=== PATIENT | female | born 1950 | race Caucasian/White ===

== ENCOUNTER 2019-06-13 11:05 | Outpatient (CLI) | payer MEDICARE, OTHER, SELFPAY ==
--- NOTE | 2019-06-13 11:21 | CT_ITS ---
WS: [id number] CT CHEST WITHOUT INTRAVENOUS CONTRAST HISTORY: PULMONARY NODULE RIGHT TECHNIQUE: Contiguous 5 mm axial imaging performed on the thorax. Coronal and sagittal reformats are submitted. All CT scans at [facility] use at least one of these dose optimization techniq ues: automated exposure control; mA and/or kV adjustment per patient size (includes targeted exams wh ere dose is matched to clinical indication); or iterative reconstruction. CONTRAST: None DLP: 526.27 mGycm COMPARISON: 04/16/2018, 10/25/2017 Lungs and central airway: Chronic emphysema. Biapical pleural thickening and scarring with fibrosis i s similar to the study of 10/25/2017. No progression. There is some very mild tethering at the apices. There is mild pleural thickening in the upper lung johnson bilaterally which is also stable. Again no dixie is the pleural-based 8.5 mm nodule in the central RIGHT lung which appears just slightly more con solidated than on the most recent study. Very similar to the study of 10/25/2017. These changes are pr obably related to volume averaging. New area of focal pleural thickening measuring 14 x 3 mm LEFT low er thorax. Mild scarring in the lingula and RIGHT middle lobe. Pleura: No effusions. Heart and pericardium: Mildly enlarged heart chambers. No pericardial effusion. Mediastinum and altaf: No mediastinum or hilar adenopathy. Vessels: Mild atherosclerosis aorta. Normal size pulmonary arteries. Chest wall and lower neck: New soft tissue nodule measuring 9.4 mm in the upper LEFT thorax, just ant erior to the pectoralis muscle. No axillary adenopathy. Upper abdomen: Mild hepatic steatosis. Splenule in the anterior LEFT abdomen. Visualized gallbladder and adrenal glands are negative. Osseous structures: Increase in thoracic kyphosis. No osteoblastic or osteolytic bone disease. CT/CT chest wo con [id number] IMPRESSION: 1. Stable pleural-based nodularity measuring 8.5 mm in the mid lateral RIGHT l radha. Similar to prior studies, no significant change since 10/25/2017. 2. New pleural thickening in the posterior LEFT lung, image 25 of series 3. Macdonald spect this is probably benign finding but will need to be further evaluated. Fo llow-up chest CT in 6-12 months. 3. Chronic emphysema with biapical scarring and fibrosis. 4. New subcutaneous soft tissue nodule measuring 9.4 mm anterior to the LEFT p ectoralis muscle. Recommend follow-up evaluation. This may be a lymph node but has not been present on prior studies.
== END 2019-06-13 11:06 | disposition home or self-care (01) ==
LOC: RADWPI 11:11
PROVIDERS: Family Provider Nurse Practitioner Family; PCP Nurse Practitioner Family; Visit Provider Thoracic Surgery (Cardiothoracic Vascular Surgery)
DX: R91.1 Solitary pulmonary nodule (principal); J43.8 Other emphysema; J84.10 Pulmonary fibrosis, unspecified
CPT/HCPCS: 71250

== ENCOUNTER 2019-10-10 12:50 | Outpatient (CLI) | payer MEDICARE, OTHER, SELFPAY ==
--- NOTE | 2019-10-10 13:06 | MM_ITS ---
WS: [id number] DIAGNOSTIC BILATERAL DIGITAL MAMMOGRAM WITH CAD LEFT breast ultrasound, limited HISTORY: LT BREAST LUMP 12 O'CLOCK COMPARISON: 12/27/2018, 12/06/2018 and 11/20/2017 TECHNIQUE: Bilateral craniocaudad, mediolateral oblique, and mediolateral views are submitted. Spot c ompression LEFT MLO Computer aided detection utilized. Breast composition: There are scattered areas of fibroglandular density. High density mass measures 14 mm in the superior posterior LEFT breast. There are adjacent benign-hany earing lymph nodes. Several lymph nodes are noted in the superior portion of the breast on the prior exam. There are adjacent superimposed lymph nodes in the axilla. This may be an abnormal lymph node a s there was a lucent center on the prior study and there are adjacent lymph nodes. Ultrasound to foll ow. LEFT breast ultrasound, limited. Ill-defined hypoechoic mass at 12:00, 6 cm from the nipple. Central increased vascularity. This mass measures 2.4 x 1.1 x 2.3 cm. This corresponds to the palpable abnormality. Normal lymph nodes in the axilla. MM/[place] [id number] IMPRESSION: BI-RADS: 4-Suspicious Finding-Biopsy Should Be Considered FOLLOW UP: Biopsy Recommended Ultrasound-guided biopsy recommended palpable mass LEFT breast at 12:00.
== END 2019-10-10 12:51 | disposition home or self-care (01) ==
LOC: RADSHAW 12:52
PROVIDERS: PCP Nurse Practitioner Family; Visit Provider Nurse Practitioner Family
DX: N63.25 Unspecified lump in the left breast, overlapping quadrants (principal)
CPT/HCPCS: 76642; 77066

== ENCOUNTER 2019-10-18 06:53 | Outpatient (CLI) | payer MEDICARE, OTHER, SELFPAY ==
--- NOTE | 2019-10-18 | US_ITS ---
WS: [id number] ULTRASOUND-GUIDED LEFT BREAST BIOPSY CLINICAL INFORMATION: LEFT BREAST MASS COMPARISON: None. FINDINGS: The procedure including risks, benefits, and complications were discussed with the patient who agreed to proceed. Using sterile technique patient was prepped and draped in the usual sterile fashion. Aft er 1% lidocaine utilizing real-time ultrasound guidance 5 14-gauge cores were obtained of the left br east lesion at the 12 o'clock position. Subsequently a titanium clip was placed in the biopsy cavity. No immediate complications. PATHOLOGY DEMONSTRATES Breast, left, mass, ultrasound-guided biopsy: -Mucinous carcinoma (colloid carcinoma). PATHOLOGY COMMENT The biopsy consists of small uniform cluster of cells floating in lakes of extracellular mucin. Addit ional ancillary studies have been performed and will be added as an addendum. US/[place] [id number] IMPRESSION: 1. Uncomplicated ultrasound-guided left breast biopsy. 2. The pathology demonstrates mucinous carcinoma (colloid carcinoma) BI-RADS: 6-Known Biopsy-Proven Malignancy FOLLOW UP: Surgical Biopsy Recommended RECOMMEND BREAST SURGERY CONSULTATION
== END 2019-10-18 06:54 | disposition home or self-care (01) ==
PROVIDERS: PCP Nurse Practitioner Family; Visit Provider Nurse Practitioner Family
DX: C50.812 Malignant neoplasm of overlapping sites of left female breast (principal)
CPT/HCPCS: 19083; 88305

== ENCOUNTER → 2019-10-30 14:18 | Outpatient (BNVA) | payer MEDICARE, OTHER, SELFPAY | PROVIDERS: PCP Nurse Practitioner Family; Visit Provider Surgery | DX: Z20.828 Contact with and (suspected) exposure to other viral communicable diseases (principal) | CPT/HCPCS: 87635 ==

== ENCOUNTER 2019-11-07 07:26 | Day surgery (SDC) | payer MEDICARE, OTHER, SELFPAY ==
[2019-11-06 12:36] VITALS: BMI 22.6
[2019-11-07 07:44] VITALS: BP 159/87; PULSE 73; RESP 18; TEMP 36.3; O2SAT 99
[2019-11-07] MEDS: sodium chloride 0.9% 1,000 ML 30 ML IV (07:45)
--- NOTE | 2019-11-07 07:49 | NM_ITS ---
WS: [id number] NUCLEAR MEDICINE SENTINEL LYMPH NODE IMAGING HISTORY: BREAST LUMPECTOMY, LEFT COMPARISON: 10/10/2019 TECHNIQUE: The patient was injected with 1.1 mCi of Technetium 99 ultra filtered sulfur colloid. Inje ction is intradermal in a periareolar location. Four aliquots are used. Uncomplicated injection of radionuclide LEFT breast. NM/NM sentinel node inject [id number] IMPRESSION: Uncomplicated LEFT breast sentinel node injection.
--- NOTE | 2019-11-07 08:32 | ANES.PREANE2 ---
Pre-Anesthetic Assessment Pre-Anesthetic Assessment: Height/Weight: Height 1.57 m Weight 56.245 kg Temp Pulse Resp BP Pulse Ox 97.3 F L 73 18 159/87 99 11/07/19 07:44 11/07/19 07:44 11/07/19 07:44 11/07/19 07:44 11/07/19 07:44 Preop Diagnosis: breast lump Proposed Procedure: Operation Date: 11/07/19 10:05 Proposed Procedures p Sentinal Lymph Node Biopsy(Left) - Chico Corrales MD s Breast Biopsy(Left) - Chico Corrales MD Familial anesthetic complications: none Was Beta Zaid taken within 24 hours: N/A Last intake: Intake Last Liquid Date 11/07/19 Last Liquid Time 00:00 Last Solid Date 11/07/19 Last Solid Time 00:00 Social: Comment: former smoker Exam: Pre-Anes Outpt Exam: alert, oriented x 3, clear to auscultation bilaterally and regular rate & rhythm Airway: Cervical ROM: WNL MP: 4 Dentition: Full Pulmonary: Pulmonary: COPD (mild - doesn't even use inhaler) Musc/skel: Musc/skel: Lower Back Pain Comments: back surgery Anesthetic Plan: ASA status: 1 Anesthesia: MAC Risk of > 500 ml blood loss (7ml/kg in children): No PFSH Anesthesia PFSH: Social History Smoking and tobacco status: former smoker Alcohol intake: current Alcohol intake frequency: holidays/special occasions only Household members: spouse Marital status: Current occupational status: retired Data Anesthesia Cardiac Studies: No Data to Display
--- NOTE | 2019-11-07 08:42 | W.PM.OPSUD ---
Surgery/Procedure H&P Update DATE OF PROCEDURE: November 07, 2019 DATE H&P PERFORMED: 11/28/19 H&P UPDATE INFORMATION: No changes to prior documentation PREOP DIAGNOSIS: breast lump PLANNED PROCEDURE: Operation Date: 11/07/19 10:05 Proposed Procedures p Sentinal Lymph Node Biopsy(Left) - Chico Corrales MD s Breast Biopsy(Left) - Chico Corrales MD
--- NOTE | 2019-11-07 12:21 | P.OP_ITS ---
Operative Report Date of procedure: November 07, 2019 Pre-op Diagnosis: Left breast cancer. Post-op diagnosis: same Procedure Done: 1. Left axillary sentinel lymph node biopsy. 2. Left breast lumpectomy. Specimens removed/disposition: 1. Left axillary sentinel lymph nodes. 2. Left breast lumpectomy specimen. Long suture anteriorly, short suture laterally. Surgeon: Chico Corrales Anesthesia: MAC Estimated blood loss (mL): 5 Complications: None. Condition: stable Disposition: same day Procedure: The patient was brought to the operating room and was placed in a supine position on the operating room table. The patient had undergone radioactive tracer injection in radiology preoperatively. A monitored anesthetic was induced. The left axilla and breast were prepped and draped in a sterile fashion. A combination of 1% lidocaine and 0.5% bupivacaine with 1- 200,000 parts epinephrine was used for local anesthesia throughout the procedures. Attention was first directed to the left axilla. The gamma probe was used to find the hot spot in the axilla. A curvilinear incision was carried out over the hot spot of the axilla at the inferior and somewhat anterior aspect. Cautery and blunt dissection were used to traverse the subcutaneous tissue and the axilla was entered. Using a combination of inspection and the gamma probe, the hot lymph node was found and was completely removed using blunt dissection and cautery. The lymph node registered counts of 130 on the field. There were 1 or 2 other smaller lymph nodes in the tissue just adjacent to the primary node, and this tissue was excised and sent, as well. Further inspection of the axilla with the gamma probe revealed all counts less than 5. The wound was irrigated with saline. A suture of 3-0 Vicryl was used to bring the deeper tissue together and the skin was approximated using a running subcuticular suture of 4-0 Vicryl. Attention was then directed to the left breast where the patient had a palpable mass in the very upper portion at the 1130 axis. A transverse incision was made and skin flaps were created both superiorly and inferiorly, as there was not a lot of breast tissue in this region. Dissection was then carried out around the mass all the way posteriorly to the pectoralis musculature. The mass was removed from the top of the muscle and in the process was marked with a long suture anteriorly and a short suture laterally for pathologic orientation. The mass seem to be completely within the excised tissue by palpation and no other abnormalities were seen in the surrounding area. The wound was irrigated with saline. The skin was reapproximated using a running subcuticular suture of 4-0 Vicryl. Benzoin and Steri-Strips were placed over the wounds and sterile bandages followed. The patient was taken to the recovery area in stable condition postoperatively.
[2019-11-07 12:34] VITALS: BP 106/62; PULSE 72; RESP 18; TEMP 36.3; O2SAT 100
--- NOTE | 2019-11-07 12:47 | ANE.PACU2 ---
Inpatient post-anesthesia follow up: Airway intact: Yes Vital signs: Temperature 97.3 F Pulse Rate 72 Respiratory Rate 18 Blood Pressure 106/62 Pulse Oximetry 100 Oxygen Delivery Me thod Room Air Oxygen Flow Rate Fraction of Inspir ed Oxygen Hydration adequate: Yes Nausea and vomiting: No Pain level: 1 Mental status: Baseline
[2019-11-07 12:52] VITALS: BP 116/87; PULSE 65; RESP 18; O2SAT 96
== END 2019-11-07 13:13 | disposition home or self-care (01) ==
PROVIDERS: PCP Nurse Practitioner Family; Visit Provider Surgery
PROC: (CPT 19301; principal; 2019-11-07 10:05)
PROC: (CPT 19301; 2019-11-07 10:05)
DX: C50.912 Malignant neoplasm of unspecified site of left female breast (principal); Z87.891 Personal history of nicotine dependence; J43.9 Emphysema, unspecified
CPT/HCPCS: 19301; 38525; 12345; 38792; 88305; A9541; J0690; J2704; J3010; J3490; J7030

== ENCOUNTER 2019-11-28 05:54 | Day surgery (SDC) | payer MEDICARE, OTHER, SELFPAY ==
[2019-11-27 08:19] VITALS: BMI 119.5
[2019-11-28 06:20] VITALS: BP 148/84; PULSE 73; RESP 18; TEMP 36.4; O2SAT 98
[2019-11-28] MEDS: sodium chloride 0.9% 1,000 ML 30 ML IV (06:35)
--- NOTE | 2019-11-28 07:23 | W.PM.OPSUD ---
Surgery/Procedure H&P Update DATE OF PROCEDURE: November 28, 2019 DATE H&P PERFORMED: 11/28/19 H&P UPDATE INFORMATION: No changes to prior documentation PREOP DIAGNOSIS: Left breast cancer. PLANNED PROCEDURE: Operation Date: 11/28/19 07:30 Proposed Procedures p Evacuation of L Breast Hematoma(Left) - Chico Corrales MD
--- NOTE | 2019-11-28 07:32 | ANES.PREANE2 ---
Pre-Anesthetic Assessment Pre-Anesthetic Assessment: Height/Weight: Height 1.55 m Weight 56.245 kg Temp Pulse Resp BP Pulse Ox 97.5 F L 73 18 148/84 98 11/28/19 06:20 11/28/19 06:20 11/28/19 06:20 11/28/19 06:20 11/28/19 06:20 Preop Diagnosis: Left breast cancer. Proposed Procedure: Operation Date: 11/28/19 07:30 Proposed Procedures p Evacuation of L Breast Hematoma(Left) - Chico Corrales MD Was Beta Zaid taken within 24 hours: N/A Last intake: Intake Last Liquid Date 11/27/19 Last Liquid Time 21:00 Last Solid Date 11/27/19 Last Solid Time 21:00 Social: Social History: No alcohol and No tobacco Exam: Pre-Anes Outpt Exam: alert, oriented x 3, clear to auscultation bilaterally and regular rate & rhythm Airway: Submandibular: WNL Cervical ROM: WNL MP: 2 Dentition: Full History/ROS: No significant history except as noted and No significant complaints Pulmonary: Pulmonary: COPD CV/HEM: CV/HEM: None reported : : None reported Hepatic: Hepatic: None reported GI: GI: None reported Metabolic: Metabolic: None reported Musc/skel: Musc/skel: None reported Neuropsych: Neuropsych: Anxiety and Depression Anesthetic Plan: ASA status: 2 Anesthesia: MAC Risk of > 500 ml blood loss (7ml/kg in children): No Meds/Allergies Current Medications: Current Medications Generic Name Dose Route Start Last Admin Trade Name Freq PRN Reason Stop Dose Admin Sodium Chloride 1,000 mls @ 30 ml s/hr 11/28/19 06:00 11/28/19 06:35 Sodium Chloride 0.9% IV 11/29/19 05:59 30 mls/hr .Q24H JAZMINE Administration PFSH Anesthesia PFSH: Social History Smoking and tobacco status: former smoker Alcohol intake: current Alcohol intake frequency: holidays/special occasions only Household members: spouse Marital status: Current occupational status: retired Data Anesthesia Cardiac Studies: No Data to Display
--- NOTE | 2019-11-28 07:48 | PM.OP ---
Operative Report Date of procedure: November 28, 2019 Pre-op Diagnosis: Left breast cancer, postoperative left breast hematoma. Post-op diagnosis: same Procedure Done: Evacuation of left breast hematoma. Pathology: none sent Surgeon: Chico Corrales Anesthesia: MAC Estimated blood loss (mL): 1 Complications: None. Condition: stable Disposition: same day Procedure: The patient was brought to the operating room and was placed in a supine position on the operating room table. A monitored anesthetic was induced. The left breast was prepped and draped in a sterile fashion. A combination of 1% lidocaine with 1 to 100,000 parts epinephrine and 0.5% bupivacaine was used for local anesthesia throughout the procedure. The lateral aspect of the patient's previous biopsy incision was reopened using a scalpel. Approximately 150 mL of old clot and liquefied hematoma were then evacuated from the biopsy cavity with suction. The cavity was then irrigated several times with saline. The small skin incision was reapproximated using inverted interrupted sutures of 4-0 Vicryl. Benzoin and a Steri-Strip were placed over the incision and a sterile compression bandage followed. The patient was taken to the outpatient recovery area in stable condition postoperatively.
[2019-11-28 07:52] VITALS: BP 112/68; PULSE 73; RESP 18; TEMP 36.7; O2SAT 96
[2019-11-28 08:23] VITALS: BP 140/68; PULSE 70; RESP 18; TEMP 36.7; O2SAT 98
--- NOTE | 2019-11-28 09:00 | ANE.PACU2 ---
Inpatient post-anesthesia follow up: Airway intact: Yes Vital signs: Temperature 98.0 F Pulse Rate 70 Respiratory Rate 18 Blood Pressure 140/68 Pulse Oximetry 98 Oxygen Delivery Me thod Room Air Oxygen Flow Rate Fraction of Inspir ed Oxygen Hydration adequate: Yes Nausea and vomiting: No Pain level: 1 Mental status: Baseline
== END 2019-11-28 09:00 | disposition home or self-care (01) ==
PROVIDERS: PCP Nurse Practitioner Family; Visit Provider Surgery
PROC: (CPT 10140; principal; 2019-11-28 07:30)
DX: N64.89 Other specified disorders of breast (principal); Z87.891 Personal history of nicotine dependence; C50.912 Malignant neoplasm of unspecified site of left female breast; J43.9 Emphysema, unspecified; K21.9 Gastro-esophageal reflux disease without esophagitis; F32.9 Major depressive disorder, single episode, unspecified
CPT/HCPCS: 10140; 12345; 96365; J0690; J2250; J2704; J3490; J7030

== ENCOUNTER 2019-12-03 10:35 | Outpatient (CLI) | payer MEDICARE, OTHER, SELFPAY ==
--- NOTE | 2019-12-03 15:26 | ONC CON_ITS ---
Dr. Luna New Patient Note Patient: Vania Vallejo Unit #: [id number]: 1950 Dicatated By: Sidney Luna M.D.Date of Visit: Dec 03, 2019 Onc MED New Patient/Consult Referring Physician: Yariel Bynum Chief Complaint: Breast cancer. 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 This patient is known to be BRCA1 positive, discovered approximately 10 years ago when her daughter was diagnosed with breast cancer and was found to harbor a BRCA1 mutation. She has been undergoing surveillance mammography. Her routine screening mammogram from 12/06/2018 was BI-RADS 0. She had additional mammographic views and ultrasound of the left breast on 12/27/2018. Mammogram findings included a round nodule in the medial left breast at the middle depth measuring 5 mm. Ultrasound showed a slightly lobulated nodule at the 10 o'clock position 1 cm from the nipple measuring 6 x 4 mm. The appearance was benign, and she was recommended to continue yearly follow-up. In September 2019 she had presented to [facility] with a lump in the superior aspect of the left breast. Bilateral diagnostic mammogram and left breast ultrasound at that time was BI-RADS 4, suspicious. Mammogram findings included a high density mass in the superior posterior left breast measuring 14 mm with several adjacent benign-appearing lymph nodes. Also noted were adjacent superimposed lymph nodes in the axilla, at least 1 of which was felt to be possibly abnormal. Ultrasound showed an ill-defined hypoechoic mass at 12 o'clock position 6 cm from the nipple. It measured 2.4 x 1.1 x 2.3 cm. There were normal appearing lymph nodes in the axilla. Ultrasound directed core needle biopsy of the left breast mass on 10/18/2019 showed mucinous carcinoma (colloid carcinoma). The breast prognostic profile showed ER positive at 100% and GA positive at 98%. The tumor was negative for overexpression of HER-2/lazarus, 0+ by IHC and amplification ratio by FISH of 0.8 with 1.8 HER-2 copies/cell. The Ki-67 was favorable at 5%. She was referred to Dr. Corrales. On 11/07/2019 she underwent left breast lumpectomy with axillary sentinel lymph node biopsy. Pathology showed grade 1 mucinous carcinoma (colloid carcinoma) measuring 2.5 cm in greatest dimension. There was mucin identified at the inferior margin, but the margins were free of mucinous carcinoma. There was no involvement in 6 lymph nodes. Pathologic staging was pT2, pN0. She is seen for further management of the breast cancer. She has been feeling pretty good generally. She says her energy is pretty good. She has normal activity. ECOG score is 0. Her appetite is good and her weight is stable. She has not had fever. She has just occasional hot flashes. She has a little bit of sinus drainage. She does not complain of shortness of breath, cough, or chest pain. She has no GI or complaints. She has no significant joint or bone pain. She has just occasional headache. She has no focal neurologic symptoms. Past Medical History: Her medical history includes chronic obstructive pulmonary disease, degenerative disease of the spine, insomnia, osteopenia, and vitamin D deficiency. Past Surgical History: She underwent undirected core needle biopsy of left breast mass on 10/18/2019. She underwent left breast lumpectomy with axillary sentinel lymph node biopsy on 11/07/2019, and she underwent evacuation of left breast hematoma on 11/28/2019. Her other surgical/procedural history includes lumbar laminectomy for ruptured disc in 2017 and hysterectomy/bilateral salpingo-oophorectomy for benign ovarian cyst in 1994. Medications: Adult Aspirin EC Low Strength 1 Tablet (of 81 mg) Tablet, enteric coated Oral daily, Apple Cider Vinegar 1 Capsule Oral daily, Tumersaid 1 Tablet Oral daily Allergies: Iodinated Contrast Dye Social History: Ms. Vallejo is . She has history of smoking 1/2 pack of cigarettes daily for 20 years. She quit smoking in 2008. She has had only rare alcohol use. Family History: Father at age 83, cause unknown to the patient. Mother of stroke at age 79. 1 brother and 3 sisters are in good health. A son in a motor vehicle accident at age 19. Her only other child, a daughter, was treated for breast cancer approximately 10 years ago. She was found to have a BCRA1 mutation. A niece was also treated for breast cancer, but she was BRCA negative. Review Of Symptoms: Constitutional - She feels good generally. Her energy is good. She has normal activity without restrictions. Her appetite is good and weight is stable. No fever, night sweats, or hot flashes. ECOG score is 0, Eyes - No change in vision, ENMT - She has seasonal allergies. No mouth sores. No sore throat or difficulty swallowing, Hematologic/Lymphatic - She bruises easily, Respiratory - She gets short of breath with activity. No cough. No pleuritic pain or hemoptysis, Cardiovascular - No angina pain. No palpitations, Gastrointestinal - No nausea or vomiting. No heartburn or acid reflux. No diarrhea or constipation. No blood in the stool or black stools, Genitourinary (F) - No dysuria or hematuria. No urinary frequency. No urgency or incontinence, Musculoskeletal - No joint or bone pain, Integumentary - No skin complications, Neurologic - She rarely has a headache. No dizziness. No numbness or tingling. No other focal neurologic symptoms, Psychiatric - No anxiety or depression. She has some difficulty sleeping. Vital Signs: Performed on Dec 03, 2019 10:52: 0, 23.39, 1.54 sq.m, 61 in, 97 %, 77 /min, 18 /min, 174/76 mm(hg) (HIGH), 98.6 F, and 123.8 lbs (HIGH). Physical Examination: Constitutional - She appears to be in good general health, Eyes - Sclerae nonicteric. Conjunctivae clear, ENMT - No lesions noted in the oral cavity, Neck - No mass or thyromegaly, Hematologic/Lymphatic - No cervical or clavicular adenopathy, Respiratory - Lungs are clear with good air movement bilaterally, Cardiovascular - Heart rhythm is regular. There is no murmur, gallop, or rub noted, Breasts - The right breast shows no mass. There is a significant area of induration at the lumpectomy site in the superior right breast/chest wall. He has the left breast otherwise shows no mass. Total time There is no axillary adenopathy noted, Abdomen - Soft and non-tender. Liver and spleen are not enlarged. There is no abdominal mass or ascites noted and there is no inguinal adenopathy, Back/Spine - No spine or CVA tenderness noted, Extremities - No edema. Pedal pulses are palpable bilaterally, Integumentary - No rashes. No suspicious skin lesions noted, Neurologic - No focal neurologic deficits noted. Impression: 1. Patient with grade 1 mucinous carcinoma (colloid carcinoma of the left breast, stage IB (T2, pN0, M0), ER/GA positive and HER-2/lazarus negative. 2. She underwent ultrasound directed core needle biopsy of the left breast on 10/18/2019 followed by left breast lumpectomy and axillary sentinel lymph node biopsy on 11/07/2019. 3. She underwent evacuation of left breast hematoma on 11/28/2019. 4. She had previously been determined to harbor a BRCA1 mutation. Her other medical illnesses include: 5. COPD. 6. Degenerative disease of the spine. 7. Osteopenia. 8. Vitamin D deficiency. Plan: The pathology findings were reviewed with the patient and her daughter, and we discussed the clinical implications. She has a very low-grade form of breast cancer which would not typically be expected in association with a BCRA mutation. Under normal circumstances, at this point I would just recommend that she undergo radiation followed by adjuvant hormonal therapy. In the presence of the known BRCA mutation, as a precaution, I will also request an Oncotype DX assay, though it is my expectation that she will not require adjuvant chemotherapy. The other consideration we discussed was the possibility of bilateral mastectomy, which normally would not be indicated with a colloid carcinoma. In the presence of a BRCA mutation, I think that option should be made available to her, as she will still have increased risk for further breast cancer in the future. At least for now I will request the Oncotype DX. She will discuss this further with her daughter and make a decision as to whether she wants to proceed with radiation or give further consideration to bilateral mastectomy with or without reconstruction. In the meantime, she will be given flu shot and Pneumovax today. Signed By: Sidney Luna M.D. <<Signature on File>>
== END 2019-12-03 10:36 | disposition home or self-care (01) ==
LOC: ONCMED 10:40
PROVIDERS: PCP Nurse Practitioner Family; Visit Provider Internal Medicine Medical Oncology
DX: C50.812 Malignant neoplasm of overlapping sites of left female breast (principal); Z23 Encounter for immunization; J44.9 Chronic obstructive pulmonary disease, unspecified; M47.9 Spondylosis, unspecified; M85.80 Other specified disorders of bone density and structure, unspecified site; E55.9 Vitamin D deficiency, unspecified; Z17.0 Estrogen receptor positive status [ER+]; Z80.3 Family history of malignant neoplasm of breast; Z87.891 Personal history of nicotine dependence
CPT/HCPCS: 99205

== ENCOUNTER 2020-02-04 05:34 | Outpatient (RCR) | payer MEDICARE, OTHER, SELFPAY ==
--- NOTE | 2020-01-08 10:40 | N.ONRAD NP_ITS ---
Radiation Oncology Consultation Patient: Vania Vallejo MR#: [id number] : 1950 Attending Physician: Dinesh Davies M.D. Date of Service: 01/08/2020 Vania Vallejo was seen in consultation this morning for evaluation regarding potential breast radiotherapy for the management of her early stage breast cancer. She presented to her primary care physician with a palpable left breast mass in September of this year. A diagnostic mammogram completed on October 10, 2019 demonstrated a 1.4 cm mass in the superior aspect of the left breast. Ultrasonography confirmed within the 12 o'clock position, 6 cm from the nipple, a 2.4 cm x 1.1 cm x 2.3 cm ill-defined, hypoechoic mass corresponding to the mammographic abnormality in the left breast. An ultrasound-guided biopsy obtained on October 18, 2019 diagnosed a mucinous carcinoma (colloid). Immunohistochemical stains were positive for estrogen receptor (100%) and progesterone receptor (98%) while negative for HER-2. The KI-67 was 5%. A left partial mastectomy with sentinel lymph node biopsy was performed by Leandro Corrales M.D. on November 07, 2019. A 2.5 cm grade 1 mucinous carcinoma was present with lymphovascular invasion present. Pella lymph node biopsy harvested six lymph nodes that were negative for malignancy. The OncotypeDX Recurrence Score of the tumor was 9. The patient presents for discussion regarding adjuvant breast radiotherapy. The patient's past medical history is significant for anemia, anxiety, depression, COPD, GERD, insomnia, migraine headaches, and vitamin D deficiency, Her past surgical history includes breast biopsy (left), laminectomy (lumbar), lipoma excision (abdominal wall), partial mastectomy with sentinel lymph node biopsy, and total abdominal hysterectomy with bilateral salpingo-oophorectomy. Her obstetrical history is . Menses began between ages 12 and 13 years old. I have reviewed the patient's medication profile which is available in the electronic medical record. She described a contrast dye allergy (iodine). The patient's family history was remarkable for breast cancer (daughter). The patient was accompanied to this consultation by her daughter. She reported a previous tobacco habit of 1/2 pack/day for 20 years (quit in 2008) and rare alcohol intake (1 -2 drinks every 2-3 months). On review of systems, she did not report any constitutional complaints including fevers of unknown origin or unintentional weight loss. There were no head neck complaints including diplopia, tinnitus, epistaxis, or dysphagia. She did not report breast complaints such as masses or nipple discharge nor any enlarged lymph nodes of the neck, armpit, or groin. She denied any cardiopulmonary symptoms such as angina, cough, or palpitations. On gastrointestinal review, she reported dyspepsia but no nausea or diarrhea. There were no genitourinary complaints such as dysuria or hematuria. She did not report any musculoskeletal complaints including bone pain or muscle weakness. There were no neurological symptoms such as headaches, paresthesias, or seizures. On physical examination, the patient has an ECOG performance status of 0. Her weight was 124 lbs. The temperature was 97.8???F. The blood pressure was 139/85 mmHg. The pulse was 70 bpm and the respiratory rate of was 18. The head was normocephalic and atraumatic. Ophthalmoscopy identified bilateral red reflexes with sharp fundi visualized. Otoscopy revealed cerumen within the external auditory canals that obstructed the tympanic membranes. Rhinoscopy exhibited non-inflamed turbinates. The oral cavity had moist mucous membranes and no oropharyngeal exudate was present. There was no cervical adenopathy or thyromegaly. No dominant breast masses were palpated. A scar was present in the upper-inner quadrant of the left breast. There was no palpable axillary adenopathy. Normal fremitus was noted with resonance to percussion elicited. Bronchovesicular breath sounds were auscultated in the posterior lung johnson. Cardiac sounds were regular in rate and rhythm. No auscultated gallops or murmurs present. No JVD noted. The abdomen had active bowel sounds. No tenderness to palpation. No evidence of organomegaly. No muscle weakness upon testing. No tenderness to deep palpation along the axial skeleton. Cranial nerves II through XII were intact. No sensory deficits. Normal reflexes noted. Gait was normal. In summary, the patient presented to her primary care physician with a palpable left breast mass in September of this year. A diagnostic mammogram completed on October 10, 2019 demonstrated a 1.4 cm mass in the superior aspect of the left breast. Ultrasonography confirmed within the 12 o'clock position, 6 cm from the nipple, a 2.4 cm x 1.1 cm x 2.3 cm ill-defined, hypoechoic mass corresponding to the mammographic abnormality in the left breast. An ultrasound-guided biopsy obtained on October 18, 2019 diagnosed a mucinous carcinoma (colloid). Immunohistochemical stains were positive for estrogen receptor (100%) and progesterone receptor (98%) while negative for HER-2. The KI-67 was 5%. A left partial mastectomy with sentinel lymph node biopsy was performed by Leandro Corrales M.D. on November 07, 2019. A 2.5 cm grade 1 mucinous carcinoma was present with lymphovascular invasion present. Pella lymph node biopsy harvested six lymph nodes that were negative for malignancy. The OncotypeDX Recurrence Score of the tumor was 9. The patient presents for discussion regarding adjuvant breast radiotherapy. I reviewed with the patient her AJCC pathological stage IB (T2N0) breast cancer. I also discussed the classic study by the NSABP comparing mastectomy, lumpectomy, and lumpectomy with radiotherapy and the Early Breast Cancer Trialist Collaborative Group meta-analysis. She is aware that the addition of radiotherapy to lumpectomy provides improvement in local control and overall survival. I anticipate a 3 week course of hypofractionated radiotherapy which will be implemented following CT radiotherapy treatment planning. Toxicities of breast radiotherapy was also addressed. The patient has verbalized understanding would like to proceed as recommended. Signed by: Dr. Dinesh Davies 01/08/2020 10:38:51 AM
--- NOTE | 2020-01-09 | CT_ITS ---
Radiation Therapy Planning CT images; total exam DLP: 460.67 mGy-cm MTDD
--- NOTE | 2020-01-13 11:33 | ONCRAD TMN_ITS ---
Radiation Oncology Weekly Treatment Management Patient: Vania Vallejo MR#: [id number] : 1950 Attending Physician: Dinesh Davies M.D. Date of Service: 01/13/2020 Referring Physician(s): Aria Mohr M.D. 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 Immunohistochemical staining were positive for estrogen receptor and progesterone receptor while negative for HER2. She has received 2.7 Gy of a prescribed 40 Gy delivered with a 3D conformal radiotherapy plan utilizing a prone set-up with opposed tangential portal johnson and electronic compensation. Upon review of systems, she denied any breast complaints to radiotherapy. On physical examination, the patient weighed 121 lbs. Her temperature was 98.3 ???F with a blood pressure of 141/76 mmHg. Her pulse was 64 bpm and her respiratory rate was 18. There was no erythema within the treatment johnson of the right breast. Continue hypofractionated breast radiotherapy as prescribed. Signed by: Dr. Dinesh Davies 01/13/2020 11:31:41 AM
--- NOTE | 2020-01-20 11:21 | ONCRAD TMN_ITS ---
Radiation Oncology Weekly Treatment Management Patient: Vania Vallejo MR#: [id number] : 1950 Attending Physician: Dinesh Davies M.D. Date of Service: 01/20/2020 Referring Physician: Aria Batuista M.D. 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 Immunohistochemical staining were positive for estrogen receptor and progesterone receptor while negative for HER2. She has received 16 Gy of a prescribed 40 Gy delivered with a 3D conformal radiotherapy plan utilizing a prone set-up with opposed tangential portal johnson and electronic compensation. Upon review of systems, she denied any breast complaints to radiotherapy. On physical examination, the patient weighed 122 lbs. Her temperature was 98.6 ???F with a blood pressure of 130/77 mmHg. Her pulse was 70 bpm and her respiratory rate was 18. There was no erythema within the treatment johnson of the left breast. Continue hypofractionated breast radiotherapy as planned. Signed by: Dr. Dinesh Davies 01/20/2020 11:20:02 AM
--- NOTE | 2020-01-27 13:19 | ONCRAD TMN_ITS ---
Radiation Oncology Weekly Treatment Management Patient: Vania Vallejo MR#: [id number] : 1950 Attending Physician: Dinesh Davies M.D. Date of Service: 01/27/2020 Referring Physician: Aria Mohr M.D. 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 Immunohistochemical staining were positive for estrogen receptor and progesterone receptor while negative for HER2. She has received 26.7 Gy of a prescribed 40 Gy delivered with a 3D conformal radiotherapy plan utilizing a prone set-up with opposed tangential portal johnson and electronic compensation. Upon review of systems, she denied any breast complaints to radiotherapy. On physical examination, the patient weighed 121 lbs. Her temperature was 98.0 ???F with a blood pressure of 154/74 mmHg. Her pulse was 80 bpm and her respiratory rate was 18. There was no erythema within the treatment johnson of the left breast. Continue hypofractionated breast radiotherapy as prescribed. Signed by: Dr. Dinesh Davies 01/27/2020 1:19:04 PM
--- NOTE | 2020-02-03 11:44 | ONCRAD TMN_ITS ---
Radiation Oncology Weekly Treatment Management Patient: Vania Vallejo MR#: [id number] : 1950 Attending Physician: Dinesh Davies M.D. Date of Service: 02/03/2020 Referring Physician: Dr. 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 Immunohistochemical staining were positive for estrogen receptor and progesterone receptor while negative for HER2. She has received 37.3 Gy of a prescribed 40 Gy delivered with a 3D conformal radiotherapy plan utilizing a prone set-up with opposed tangential portal johnson and electronic compensation. Upon review of systems, she reported itching of the breast. On physical examination, the patient weighed 123 lbs. Her temperature was 97.8 ???F with a blood pressure of 148/76 mmHg. Her pulse was 68 bpm and her respiratory rate was 16. There were erythematous papules in the medial portion of the left breast. Continue hypofractionated left breast radiotherapy as planned. I will recommend diphenhydramine lotion for itching. Signed by: Dr. Dinesh Davies 02/03/2020 11:43:10 AM
== END 2020-02-06 23:59 | disposition home or self-care (01) ==
LOC: ONCMED 05:34
PROVIDERS: PCP Nurse Practitioner Family; Visit Provider Radiology Radiation Oncology
DX: Z51.0 Encounter for antineoplastic radiation therapy (principal); C50.212 Malignant neoplasm of upper-inner quadrant of left female breast; L53.8 Other specified erythematous conditions; D64.9 Anemia, unspecified; F41.8 Other specified anxiety disorders; J44.9 Chronic obstructive pulmonary disease, unspecified; K21.9 Gastro-esophageal reflux disease without esophagitis; G47.00 Insomnia, unspecified; G43.909 Migraine, unspecified, not intractable, without status migrainosus; E55.9 Vitamin D deficiency, unspecified; Z90.12 Acquired absence of left breast and nipple; Z90.710 Acquired absence of both cervix and uterus; Z87.891 Personal history of nicotine dependence; Z80.3 Family history of malignant neoplasm of breast; Z17.0 Estrogen receptor positive status [ER+]
CPT/HCPCS: 77280; 77295; 77300; 77332; 77334; 77336; 77387; 77412; 99205; 99215

== ENCOUNTER 2020-03-05 14:31 | Outpatient (CLI) | payer MEDICARE, OTHER, SELFPAY ==
--- NOTE | 2020-03-05 14:37 | XR_ITS ---
WS: [id number] DEXA (DUAL ENERGY X-RAY ABSORPTIOMETRY) Bone mineral density was performed using a [employer] machine. HISTORY: ASYMPTOMATIC POSTMENOPAUSAL STATUS, BREAST CANCER COMPARISON: 12/26/2016 Left forearm BMD: 0.757 g/cm2. T score: -1.4 Z score: 0.3 Total hip BMD: Left: 0.715 g/cm2. T score: -2.3 Z score: -0.7 Right: 0.743 g/cm2. T score: -2.1 Z score: -0.5 10 year probability of a major osteoporotic fracture is Compared to the prior study from 12/26/2016. Bilateral hips bone mineral density has not increased or decreased . XR/XR DEXA axial skeleton* [id number] IMPRESSION: OSTEOPENIA based upon the WHO classification for females. No significant change in bone mineral density of the hips as compared to the prior study.
== END 2020-03-05 14:32 | disposition home or self-care (01) ==
LOC: RADWPI 14:34
PROVIDERS: PCP Nurse Practitioner Family; Visit Provider Internal Medicine Medical Oncology
DX: C50.212 Malignant neoplasm of upper-inner quadrant of left female breast (principal); Z78.0 Asymptomatic menopausal state; E55.9 Vitamin D deficiency, unspecified; M85.88 Other specified disorders of bone density and structure, other site
CPT/HCPCS: 77080

== ENCOUNTER 2020-03-05 14:45 | Outpatient (RCR) | payer MEDICARE, OTHER, SELFPAY ==
--- NOTE | 2020-02-21 10:16 | ONC FU_ITS ---
Dr. Luna Patient Follow-Up Note Patient: Vania Vallejo Unit #: [id number]: 1950 Dicatated By: Sidney Luna M.D.Date of Visit:Feb 21, 2020 Onc Med Follow-up/Prog Note Chief Complaint: Breast cancer. 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 This patient is known to be BRCA1 positive, discovered approximately 10 years ago when her daughter was diagnosed with breast cancer and was found to harbor a BRCA1 mutation. She has been undergoing surveillance mammography. Her routine screening mammogram from 12/06/2018 was BI-RADS 0. She had additional mammographic views and ultrasound of the left breast on 12/27/2018. Mammogram findings included a round nodule in the medial left breast at the middle depth measuring 5 mm. Ultrasound showed a slightly lobulated nodule at the 10 o'clock position 1 cm from the nipple measuring 6 x 4 mm. The appearance was benign, and she was recommended to continue yearly follow-up. In September 2019 [facility] with a lump in the superior aspect of the left breast. Bilateral diagnostic mammogram and left breast ultrasound at that time was BI-RADS 4, suspicious. Mammogram findings included a high density mass in the superior posterior left breast measuring 14 mm with several adjacent benign-appearing lymph nodes. Also noted were adjacent superimposed lymph nodes in the axilla, at least 1 of which was felt to be possibly abnormal. Ultrasound showed an ill-defined hypoechoic mass at 12 o'clock position 6 cm from the nipple. It measured 2.4 x 1.1 x 2.3 cm. There were normal appearing lymph nodes in the axilla. Ultrasound directed core needle biopsy of the left breast mass on 10/18/2019 showed mucinous carcinoma (colloid carcinoma). The breast prognostic profile showed ER positive at 100% and MT positive at 98%. The tumor was negative for overexpression of HER-2/lazarus, 0+ by IHC and amplification ratio by FISH of 0.8 with 1.8 HER-2 copies/cell. The Ki-67 was favorable at 5%. She was referred to Dr. Corrales. On 11/07/2019 she underwent left breast lumpectomy with axillary sentinel lymph node biopsy. Pathology showed grade 1 mucinous carcinoma (colloid carcinoma) measuring 2.5 cm in greatest dimension. There was mucin identified at the inferior margin, but the margins were free of mucinous carcinoma. There was no involvement in 6 lymph nodes. Pathologic staging was pT2, pN0. I had seen her initially on 12/03/2019. She then had further evaluation with Oncotype DX. It showed a recurrence score of 9 corresponding to a 3% risk of distant recurrence at 9 years with adjuvant hormonal therapy. The predicted benefit with chemotherapy was less than 1%. As such, adjuvant chemotherapy was not recommended. She was seen by Dr. Davies for radiation oncology consultation on 01/08/2020. She then proceeded with radiation to the left breast, completed on 02/04/2020 to a total dose 4000 cGy, administered in 15 fractions. She tolerated the radiation well. Her other medical illnesses include COPD, degenerative disease of the spine, osteopenia, and vitamin D deficiency. Her prior surgeries include hysterectomy/bilateral salpingo-oophorectomy in 1994. She had previous lumbar laminectomy for ruptured disc. She has a history of smoking 1/2 pack of cigarettes daily for 20 years, but she quit in 2008. She is seen for a follow-up visit. She has been feeling pretty good generally. She says her energy is pretty good. She has normal activity. ECOG score is 0. Appetite is good. She has not had fever or night sweats. She has just very occasional hot flashes. She has no shortness of breath, cough, or chest pain. She has no GI or complaints. She currently is not having any significant joint or bone pain. She has no focal neurologic symptoms. Medications: Adult Aspirin EC Low Strength 1 Tablet (of 81 mg) Tablet, enteric coated Oral daily, Apple Cider Vinegar 1 Capsule Oral daily, Tumersaid 1 Tablet Oral daily Allergies: Iodinated Contrast Dye Vital Signs: Performed on Feb 21, 2020 09:30 Height - 61.00 in Weight - 124.6 lbs (HIGH) BSA - 1.54 sq.m BMI - 23.54 Temperature - 97.8 F (LOW) Pulse - 79 /min Respiration - 16 /min BP - 152/78 mm(hg) (HIGH) O2 Sat - 97 % Pain - 0 Physical Examination: Constitutional - She looks good generally, Eyes - Sclerae nonicteric. Conjunctivae clear, ENMT - No lesions noted in the oral cavity, Hematologic/Lymphatic - No cervical, clavicular, or axillary adenopathy, Respiratory - Lungs are clear with good air movement bilaterally, Cardiovascular - Heart rhythm is regular. There is no murmur, gallop, or rub noted, Abdomen - Soft. Liver and spleen are not enlarged. There is no abdominal mass or ascites noted and there is no inguinal adenopathy, Extremities - No edema, Neurologic - No focal neurologic deficits noted. Historic Problem List: 1. Grade 1 mucinous carcinoma (colloid carcinoma of the left breast, stage IB (T2, pN0, M0), ER/MT positive and HER-2/lazarus negative. Her Oncotype DX was low risk, recurrence score 9, and adjuvant chemotherapy was not recommended. 2. She completed radiation to the left breast on 02/04/2020, total dose of 4000 cGy administered in 15 fractions. 3. She had previously been determined to harbor a BRCA1 mutation. Her other medical illnesses include: 4. COPD. 5. Degenerative disease of the spine. 6. Osteopenia. 7. Vitamin D deficiency. Problems Addressed with this Encounter and Plan: 1. Grade 1 mucinous carcinoma (colloid carcinoma of the left breast, stage IB (T2, pN0, M0), ER/MT positive and HER-2/lazarus negative. She underwent ultrasound-directed core needle biopsy of the left breast on 10/18/2019 followed by left breast lumpectomy and axillary sentinel lymph node biopsy on 11/07/2019. She underwent evacuation of left breast hematoma on 11/28/2019. Her Oncotype DX was low risk, recurrence score 9, and adjuvant chemotherapy was not recommended. She completed radiation to the left breast on 02/04/2020, total dose of 4000 cGy administered in 15 fractions. She tolerated the radiation well. With hormone receptor positive disease, she is also recommended to take adjuvant hormonal therapy. She will begin treatment with anastrozole 1 mg daily. The recommended duration of treatment is 5 years. I reviewed anticipated side effects which may include osteoporosis and joint pain, among others. She will be scheduled for a follow-up visit in 3 months. 2. Osteopenia/vitamin D deficiency. She will have baseline laboratory studies today to include CBC, comprehensive metabolic profile, and 25-hydroxy vitamin D level. She will be scheduled for a baseline DEXA scan, and she will be given treatment for bone health as indicated. Signed By: Sidney Luna M.D. <<Signature on File>>
[2020-02-21 10:22] LABS: Basophils # 0.1 10^3/uL (0.0-0.1); Basophils % 0.8 %; Eosinophils % 0.6 %; Hematocrit 40.5 % (37.0-47.0); Hemoglobin 13.3 g/dL (11.5-15.3); Lymphocytes # 1.4 10^3/uL (0.8-4.8); Lymphocytes % 21.5 %; Mean Corpuscular HGB Conc 32.8 g/dL (30.0-36.0); Mean Corpuscular Hemoglobin 32.1 pg (28.0-34.0); Mean Corpuscular Volume 97.8 fL (81-99); Mean Platelet Volume 9.4 fL (7.4-10.4); Monocytes # 0.5 10^3/uL (0.2-0.9); Monocytes % 8.2 %; Neutrophils # 4.43 10^3/uL (1.8-7.7); Neutrophils % 68.6 %; Nucleated Red Blood Cells % 0 %; Platelet Count 284 10^3/cmm (130-400); Red Blood Count 4.14 10^6/uL (4.1-5.3); Red Cell Distribution Width 12.6 % (12.1-15.1); White Blood Count 6.5 10^3/uL (4.0-10.0)
--- NOTE | 2020-02-21 10:33 | ONCRAD EPV_ITS ---
Radiation Oncology Follow-Up Note Patient Name: Vania Vallejo Date of : 1950 Date of Service: 02/21/2020 Attending Physician: Dinesh Davies M.D. Vania Vallejo returned to my office this morning for a routinely scheduled post-radiotherapy appointment. She completed adjuvant radiotherapy in January for the post-operative management of her pathological stage IB (T2N0) grade 1 mucinous carcinoma of the central portion of the left breast. Immunohistochemical stains were positive for estrogen receptor (100%) and progesterone receptor (98%) while negative for HER-2. Radiotherapy was administered between the dates of January 13, 2020 through February 04, 2020. A prescribed dose of 40 Gy was delivered in 15 fractions over 23 elapsed days. On review of systems, she did not report any breast complaints. On physical examination, she weighed 125 lbs. The temperature was 97.8 and her blood pressure was 152/76 mmHg. The pulse was 79 bpm and the respiratory rate was 16 breaths/min. Examination of the left breast did not reveal any significant erythema nor hyperpigmentation. In summary, Ms. Vallejo returned for a routine post-radiotherapy follow-up. She has no residual sequelae from radiotherapy and will continue follow-up with her medical oncologist as scheduled. Signed by: Dr. Dinesh Davies 02/21/2020 10:32:40 AM
[2020-02-21 10:59] LABS: 25 Hydroxy Vitamin D 16 ng/mL (30-100); Alanine Aminotransferase 39 U/L (0-33); Albumin Level 4.5 g/dL (3.5-5.2); Alkaline Phosphatase 80 IU/L (35-105); Anion Gap 11.4 (5-19); Aspartate Amino Transferase 31 U/L (0-32); Blood Urea Nitrogen 17 mg/dL (8-23); Calcium 9.8 mg/dL (8.5-10.5); Carbon Dioxide 30 mmol/L (22-29); Chloride 101 mmol/L (98-107); Globulin 2.8 g/dL (1.3-4.6); Glomerular Filtration Rate 83.2 mL/min (90-130); Glucose 89 mg/dL (65-115); Osmolality Calculated 287 mOsm/kg (285-295); Potassium 4.4 mmol/L (3.5-5.1); Sodium 138 mmol/L (136-145); Total Bilirubin 0.3 mg/dL (0.15-1.2); Total Protein 7.3 g/dL (6.6-8.7)
== END 2020-03-08 23:59 | disposition home or self-care (01) ==
LOC: ONCMED 14:45
PROVIDERS: Internal Medicine Medical Oncology; PCP Nurse Practitioner Family; Visit Provider Radiology Radiation Oncology
DX: C50.812 Malignant neoplasm of overlapping sites of left female breast (principal); Z17.0 Estrogen receptor positive status [ER+]; J44.9 Chronic obstructive pulmonary disease, unspecified; M47.9 Spondylosis, unspecified; M85.80 Other specified disorders of bone density and structure, unspecified site; E55.9 Vitamin D deficiency, unspecified; Z92.21 Personal history of antineoplastic chemotherapy; Z92.3 Personal history of irradiation; Z79.899 Other long term (current) drug therapy
CPT/HCPCS: 36415; 80053; 82306; 85025; 99214

== ENCOUNTER 2020-03-12 06:32 | Outpatient (RCR) | payer MEDICARE, OTHER, SELFPAY ==
[2020-03-12] MEDS: denosumab 60 mg SDV SUBCUT (13:20)
== END 2020-04-05 23:59 | disposition home or self-care (01) ==
LOC: ONCMED 06:32
PROVIDERS: PCP Nurse Practitioner Family; Visit Provider Internal Medicine Medical Oncology
DX: C50.212 Malignant neoplasm of upper-inner quadrant of left female breast (principal); Z17.0 Estrogen receptor positive status [ER+]; M81.0 Age-related osteoporosis without current pathological fracture; E55.9 Vitamin D deficiency, unspecified
CPT/HCPCS: 96372; J0897

== ENCOUNTER 2020-05-21 11:56 | Outpatient (CLI) | payer MEDICARE, OTHER, SELFPAY ==
[2020-05-21 12:49] LABS: Basophils # 0.1 10^3/uL (0.0-0.1); Basophils % 0.8 %; Eosinophils # 0.1 10^3/uL (0.0-0.8); Eosinophils % 0.9 %; Hemoglobin 12.8 g/dL (11.5-15.3); Lymphocytes # 2.8 10^3/uL (0.8-4.8); Lymphocytes % 35.9 %; Mean Corpuscular HGB Conc 32.8 g/dL (30.0-36.0); Mean Corpuscular Hemoglobin 32.3 pg (28.0-34.0); Mean Corpuscular Volume 98.5 fL (81-99); Mean Platelet Volume 9.6 fL (7.4-10.4); Monocytes # 0.5 10^3/uL (0.2-0.9); Monocytes % 6.8 %; Neutrophils # 4.28 10^3/uL (1.8-7.7); Neutrophils % 55.3 %; Nucleated Red Blood Cells % 0 %; Platelet Count 303 10^3/cmm (130-400); Red Blood Count 3.96 10^6/uL (4.1-5.3); Red Cell Distribution Width 12.5 % (12.1-15.1); White Blood Count 7.7 10^3/uL (4.0-10.0)
[2020-05-21 13:05] LABS: Alanine Aminotransferase 13 U/L (0-33); Albumin Level 4.8 g/dL (3.5-5.2); Alkaline Phosphatase 71 IU/L (35-105); Anion Gap 15.1 (5-19); Aspartate Amino Transferase 15 U/L (0-32); Blood Urea Nitrogen 15 mg/dL (8-23); Calcium 9.3 mg/dL (8.5-10.5); Carbon Dioxide 27 mmol/L (22-29); Chloride 101 mmol/L (98-107); Globulin 2.4 g/dL (1.3-4.6); Glomerular Filtration Rate 99.4 mL/min (90-130); Glucose 89 mg/dL (65-115); Osmolality Calculated 288 mOsm/kg (285-295); Potassium 4.1 mmol/L (3.5-5.1); Sodium 139 mmol/L (136-145); Total Bilirubin 0.3 mg/dL (0.15-1.2); Total Protein 7.2 g/dL (6.6-8.7)
[2020-05-30 23:53] LABS: Vit D 1,25 (Oh)2, Total 69 pg/mL (18-72); Vit D2 1,25 (Oh)2 11 pg/mL; Vit D3 1,25 (Oh)2 58 pg/mL
--- NOTE | 2020-06-06 14:06 | ONC FU_ITS ---
[facility] Patient Note Patient: Vania Vallejo Unit #: [id number]: 1950 Dictated By: Yariel VilaDate of Visit: May 21, 2020 Onc MED Follow-Up/Prog Note Chief Complaint: Breast cancer. 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 This patient is known to be BRCA1 positive, discovered approximately 10 years ago when her daughter was diagnosed with breast cancer and was found to harbor a BRCA1 mutation. She has been undergoing surveillance mammography. Her routine screening mammogram from 12/06/2018 was BI-RADS 0. She had additional mammographic views and ultrasound of the left breast on 12/27/2018. Mammogram findings included a round nodule in the medial left breast at the middle depth measuring 5 mm. Ultrasound showed a slightly lobulated nodule at the 10 o'clock position 1 cm from the nipple measuring 6 x 4 mm. The appearance was benign, and she was recommended to continue yearly follow-up. In September 2019 she had presented to [facility] with a lump in the superior aspect of the left breast. Bilateral diagnostic mammogram and left breast ultrasound at that time was BI-RADS 4, suspicious. Mammogram findings included a high density mass in the superior posterior left breast measuring 14 mm with several adjacent benign-appearing lymph nodes. Also noted were adjacent superimposed lymph nodes in the axilla, at least 1 of which was felt to be possibly abnormal. Ultrasound showed an ill-defined hypoechoic mass at 12 o'clock position 6 cm from the nipple. It measured 2.4 x 1.1 x 2.3 cm. There were normal appearing lymph nodes in the axilla. Ultrasound directed core needle biopsy of the left breast mass on 10/18/2019 showed mucinous carcinoma (colloid carcinoma). The breast prognostic profile showed ER positive at 100% and MA positive at 98%. The tumor was negative for overexpression of HER-2/lazarus, 0+ by IHC and amplification ratio by FISH of 0.8 with 1.8 HER-2 copies/cell. The Ki-67 was favorable at 5%. She was referred to Dr. Corrales. On 11/07/2019 she underwent left breast lumpectomy with axillary sentinel lymph node biopsy. Pathology showed grade 1 mucinous carcinoma (colloid carcinoma) measuring 2.5 cm in greatest dimension. There was mucin identified at the inferior margin, but the margins were free of mucinous carcinoma. There was no involvement in 6 lymph nodes. Pathologic staging was pT2, pN0. Dr Luna had seen her initially on 12/03/2019. She then had further evaluation with Oncotype DX. It showed a recurrence score of 9 corresponding to a 3% risk of distant recurrence at 9 years with adjuvant hormonal therapy. The predicted benefit with chemotherapy was less than 1%. As such, adjuvant chemotherapy was not recommended. She was seen by Dr. Davies for radiation oncology consultation on 01/08/2020. She then proceeded with radiation to the left breast, completed on 02/04/2020 to a total dose 4000 cGy, administered in 15 fractions. She tolerated the radiation well. Her other medical illnesses include COPD, degenerative disease of the spine, osteopenia, and vitamin D deficiency. Her prior surgeries include hysterectomy/bilateral salpingo-oophorectomy in 1994. She had previous lumbar laminectomy for ruptured disc. She has a history of smoking 1/2 pack of cigarettes daily for 20 years, but she quit in 2008. After completion of her radiation therapy Mrs. Vallejo was advised to pursue adjuvant hormonal therapy for her hormone receptor positive disease. She began on anastrozole 1 mg in February 2020. She is here today for follow-up. She has known osteopenia and vitamin D deficiency. She did have baseline bone density imaging on March 05, 2020. The total hip bone mineral density T score was -2.3. She received Prolia on March 12, 2020. She has tolerated it well. She states she has some hot flashes off and on and some bone aches off and on but neither one or bad . She states she has had some insomnia off and on. She states that she was given some medicine by her PCP, [facility] but it because I flashes . She is not currently taking it. She states the insomnia has gotten some worse. She denies any fever or chills. She denies any mouth sores, sore throat or difficulty swallowing. She denies any mood swings. She states she has not noted any skin or mucous membrane dryness at this point. She has had no nausea or vomiting. She denies diarrhea or constipation. She denies any adenopathy. She denies any pain. Her ECOG is 0. Past Medical History: Chronic obstructive pulmonary disease Degenerative disease of the spine Insomnia Osteopenia Vitamin D deficiency Past Surgical History: Evacuation of left breast hematoma in 2019 Left breast lumpectomy with axillary sentinel lymph node biopsy in 2019 Ultrasound directed needle biopsy of left breast mass in 2019 Lumbar laminectomy for ruptured disc in 2017 Hysterectomy/bilateral salpingo-oophorectomy for benign ovarian cyst in 1994 Allergies: Iodinated Contrast Dye Medications: Adult Aspirin EC Low Strength 1 Tablet (of 81 mg) Tablet, enteric coated Oral daily Apple Cider Vinegar 1 Capsule Oral daily Tumersaid 1 Tablet Oral daily Family History: Ms. Vallejo's mother is : Alzheimer's disease, and stroke. Ms. Vallejo's father is . Ms. Vallejo has 1 son who is . Father at age 83, cause unknown to the patient. Mother of stroke at age 79. 1 brother and 3 sisters are in good health. A son in a motor vehicle accident at age 19. Her only other child, a daughter, was treated for breast cancer approximately 10 years ago. She was found to have a BCRA1 mutation. A niece was also treated for breast cancer, but she was BRCA negative. Social History: Ms. Vallejo is . Ms. Vallejo quit smoking 12 years ago but had smoked 0.5 packs/day for 40 years. She drinks occasionally. She has history of smoking 1/2 pack of cigarettes daily for 20 years. She quit smoking in 2008. She has had only rare alcohol use. Review Of Symptoms: Vital Signs: Performed on May 21, 2020 14:15 Height - 61.00 in Weight - 127.4 lbs (HIGH) BSA - 1.56 sq.m BMI - 24.07 Temperature - 98.2 F (LOW) Pulse - 83 /min Respiration - 17 /min BP - 148/84 mm(hg) (HIGH) O2 Sat - 97 % Pain - 0,0 - Fully active, able to carry on all predisease activities without restrictions. (ECOG) Physical Examination: Constitutional Alert, oriented, no acute distress. Skin pink, warm and dry. Head Normocephalic; atraumatic. Eyes Conjunctivae and sclerae are clear and without icterus. Pupils are reactive and equal. Neck Supple without masses or thyromegaly. No jugular venous distension. Hematologic/Lymphatic No petechiae or purpura. No tender or palpable lymph nodes in the cervical or supraclavicular areas. Respiratory Lungs are clear to auscultation without rhonchi or wheezing. Cardiovascular Regular rate and rhythm of heart without murmurs,clicks, gallops or rubs. Abdomen Non-tender, non-distended, no masses or ascites. Good bowel sounds noted in all quads. No guarding or rebound tenderness. No pulsatile masses. Back/Spine Non-tender to palpation. Extremities No visible deformities, no cyanosis, clubbing or edema. Musculoskeletal No tenderness or swelling, normal range of motion without obvious weakness. Integumentary No rashes or lesions. Neurologic No sensory or motor deficits, normal cerebellar function, normal gait. Psychiatric Alert and oriented times three. Coherent speech. Verbalizes understanding of our discussions today. Laboratory:Test performed on May 21, 2020 12:20 Sodium 139 mmol/L Vitamin D (1, 25 Dihydroxy) 69 pg/mL Potassium 4.1 mmol/L Vitamin D3 (1, 25 Dihydroxy) 58 pg/mL Chloride 101 mmol/L Vitamin D2 (1, 25 Dihydroxy) 11 pg/mL CO2 27 mmol/L Anion Gap 15.1 BUN 15 mg/dL Creatinine 0.6 mg/dL Cr Clearance (Est) 81.87 mL/min eGFR 99.4 mL/min Glucose 89 mg/dL Osmolality - Calculated 288 mOsm/kg Calcium 9.3 mg/dL Protein, Total 7.2 g/dL Albumin 4.8 g/dL Globulin 2.4 g/dL Bilirubin, Total 0.3 mg/dL ALT (SGPT) 13 U/L AST (SGOT) 15 U/L Alkaline Phosphatase 71 IU/L WBC 7.7 10 3/uL RBC 3.96 10 6/uL HGB 12.8 g/dL HCT 39.0 % MCV 98.5 fL MCH 32.3 pg MCHC 32.8 g/dL RDW 12.5 % Platelet Count 303 10 3/cmm MPV 9.6 fL Neutrophils 4.28 10 3/uL Lymphocytes 2.8 10 3/uL Monocytes 0.5 10 3/uL Eosinophils 0.1 10 3/uL Basophils 0.1 10 3/uL Neutrophil % 55.3 % Lymphocyte % 35.9 % Monocyte % 6.8 % Eosinophil % 0.9 % Basophils % 0.8 % NRBC % 0 % Test performed on Feb 21, 2020 09:57 Vitamin D (25-Hydroxy), Total 16 ng/mL Impression: 1. Grade 1 mucinous carcinoma (colloid carcinoma of the left breast, stage IB (T2, pN0, M0), ER/MA positive and HER-2/lazarus negative. Her Oncotype DX was low risk, recurrence score 9, and adjuvant chemotherapy was not recommended. 2. She completed radiation to the left breast on 02/04/2020, total dose of 4000 cGy administered in 15 fractions. 3. She had previously been determined to harbor a BRCA1 mutation. Her other medical illnesses include: 4. COPD. 5. Degenerative disease of the spine. 6. Osteopenia. 7. Vitamin D deficiency. Plan: PROBLEMS ADDRESSED TODAY 1. Grade 1 mucinous carcinoma (colloid carcinoma of the left breast, stage IB (T2, pN0, M0), ER/MA positive and HER-2/lazarus negative. She underwent ultrasound-directed core needle biopsy of the left breast on 10/18/2019 followed by left breast lumpectomy and axillary sentinel lymph node biopsy on 11/07/2019. She underwent evacuation of left breast hematoma on 11/28/2019. Her Oncotype DX was low risk, recurrence score 9, and adjuvant chemotherapy was not recommended. She completed radiation to the left breast on 02/04/2020, total dose of 4000 cGy administered in 15 fractions. She tolerated the radiation well. With hormone receptor positive disease, she was advised to take adjuvant hormonal therapy. She began treatment with anastrozole 1 mg daily on March 05, 2020. The recommended duration of treatment is 5 years. A. Proceed with anastrozole 1 mg daily. She is currently tolerating it well. B. Labs from today were reviewed in detail and discussed with Ms. Vallejo and a copy was given to her. WBC 7.7, hemoglobin 12.8, platelets 303,000, ANC is 4280. Potassium 4.1 creatinine 0.6 random glucose 89 LFTs are normal her vitamin D (25-hydroxy) level from February 21, 2020 was reported at 16. She reports she is taking an [id number] vitamin D supplement/replacement. Her vitamin D 1, 25 dihydroxy level today is 69. C. Her last mammogram was bilateral diagnostic digital mammogram with CAD on October 10, 2019. This was done at [facility]. It was BI-RADS 4 which prompted investigation resulting in her current diagnosis. 2. Osteopenia/vitamin D deficiency. A. Baseline bone density on March 05, 2020 reported a total hip bone mineral density of -2.3 T score. B. Prolia 60 mg administered on March 12, 2020 she will be due again in 6 months from the administration date. C. She continues with [id number] vitamin D replacement???see vitamin D levels above. 3. Insomnia. A. I have sent her prescription in for a trial of Lunesta 1 mg???generic was approved. Ms. Vallejo was advised let us know if she has any problems such as she has any more I flashes she has to stop her medication. 4. Follow-up plan A. We will plan to see her back for follow-up again in 3 months with CBC CMP and repeat vitamin D 25 level. B. Mrs. Vallejo was encouraged to contact us in interim should questions or problems arise. C. She will be due for mammography again October 2020. D. Follow-up bone mineral/DEXA scan will be due on or after March 05, 2022. Signed By: Yariel Vila-, [facility] Sidney Luna MD <<Signature on File>>
== END 2020-05-21 11:57 | disposition home or self-care (01) ==
LOC: ONCMED 12:00
PROVIDERS: Internal Medicine Medical Oncology; PCP Nurse Practitioner Family; Visit Provider Nurse Practitioner
DX: C50.812 Malignant neoplasm of overlapping sites of left female breast (principal); Z17.0 Estrogen receptor positive status [ER+]; J44.9 Chronic obstructive pulmonary disease, unspecified; M47.9 Spondylosis, unspecified; M85.80 Other specified disorders of bone density and structure, unspecified site; E55.9 Vitamin D deficiency, unspecified; Z79.811 Long term (current) use of aromatase inhibitors; Z92.3 Personal history of irradiation
CPT/HCPCS: 36415; 80053; 82652; 85025; 99214

== ENCOUNTER 2020-06-30 14:18 | Outpatient (CLI) | payer MEDICARE, OTHER, SELFPAY ==
--- NOTE | 2020-06-30 14:34 | CT_ITS ---
WS: [id number] CT CHEST TECHNIQUE: Noncontrast CT of the chest with coronal and sagittal reformatted images. CLINICAL INFORMATION: R91.1 - Solitary pulmonary nodule COMPARISON: CT June 13, 2019 DLP: 549.[address] scans at use at least one of these dose optimization techniques: automat ed exposure control; mA and/or kV adjustment per patient size (includes targeted exams where dose is matched to clinical indication); or iterative reconstruction. FINDINGS: Moderate chronic emphysematous changes. Biapical fibrosis. Aortic calcification. No mediastinal or hi lar lymphadenopathy. No axillary lymphadenopathy. Induration and skin thickening involving the left breast with inflammatory changes due to treatment e ffect and postoperative changes. Micronodular infiltrates in the anterior segment left upper lobe sim ilar to previous. Previously described 8 mm subpleural opacity has essentially resolved compared to p revious. Small moderate residual pleural thickening. Subpleural nodule left lower lobe has also resolved compared to previous. CT/CT chest wo con [id number] IMPRESSION: 1. Previously described right upper lobe and left lower lobe subpleural opacit ies have essentially resolved compared to previous. Small amount of residual pl eural thickening right upper lobe. 2. No new suspicious pulmonary parenchymal opacities. 3. Stable micronodular infiltrates in the anterior segment left upper lobe may be infectious or inflammatory unchanged. 4. No mediastinal or hilar lymphadenopathy. 5. Moderate chronic emphysematous changes. Parenchymal fibrosis. 6. Post therapeutic and postoperative changes involving the left breast with s kin thickening.
== END 2020-06-30 14:19 | disposition home or self-care (01) ==
PROVIDERS: PCP Nurse Practitioner Family; Visit Provider Thoracic Surgery (Cardiothoracic Vascular Surgery)
DX: R91.1 Solitary pulmonary nodule (principal); R91.8 Other nonspecific abnormal finding of lung field
CPT/HCPCS: 71250

== ENCOUNTER 2020-09-28 13:01 | Outpatient (CLI) | payer MEDICARE, OTHER, SELFPAY ==
[2020-09-28 13:43] LABS: Basophils # 0.1 10^3/uL (0.0-0.1); Basophils % 0.6 %; Eosinophils # 0.2 10^3/uL (0.0-0.8); Eosinophils % 2.5 %; Hemoglobin 12.5 g/dL (11.5-15.3); Lymphocytes # 2.3 10^3/uL (0.8-4.8); Lymphocytes % 28.8 %; Mean Corpuscular HGB Conc 32.1 g/dL (30.0-36.0); Mean Corpuscular Hemoglobin 31.8 pg (28.0-34.0); Mean Corpuscular Volume 99.2 fl (81-99); Mean Platelet Volume 10.2 fL (7.4-10.4); Monocytes # 0.7 10^3/uL (0.2-0.9); Monocytes % 8.8 %; Neutrophils # 4.66 10^3/uL (1.8-7.7); Neutrophils % 58.9 %; Nucleated Red Blood Cells % 0 %; Platelet Count 283 10^3/cmm (130-400); Red Blood Count 3.93 10^6/uL (4.1-5.3); Red Cell Distribution Width 12.6 % (12.1-15.1); White Blood Count 7.9 10^3/uL (4.0-10.0)
[2020-09-28] MEDS: denosumab 60 mg SDV SUBCUT (15:15)
[2020-09-28 19:08] LABS: Alanine Aminotransferase 13 U/L (0-33); Albumin Level 4.3 g/dL (3.5-5.2); Alkaline Phosphatase 68 IU/L (35-105); Anion Gap 15.3 (5-19); Aspartate Amino Transferase 18 U/L (0-32); Blood Urea Nitrogen 19 mg/dL (8-23); Calcium 8.9 mg/dL (8.5-10.5); Carbon Dioxide 25 mmol/L (22-29); Chloride 104 mmol/L (98-107); Globulin 2.6 g/dL (1.3-4.6); Glucose 85 mg/dL (65-115); Osmolality Calculated 292 mOsm/kg (285-295); Potassium 4.3 mmol/L (3.5-5.1); Sodium 140 mmol/L (136-145); Total Bilirubin 0.2 mg/dL (0.15-1.2); Total Protein 6.9 g/dL (6.6-8.7)
[2020-09-28 19:21] LABS: 25 Hydroxy Vitamin D 28 ng/mL (30-100)
--- NOTE | 2020-09-29 07:09 | ONC FU_ITS ---
Dr. Luna Patient Follow-Up Note Patient: Vania Vallejo Unit #: [id number]: 1950 Dicatated By: Sidney Luna M.D.Date of Visit:Sep 28, 2020 Onc Med Follow-up/Prog Note Chief Complaint: Breast cancer. 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 This patient is known to be BRCA1 positive, discovered approximately 10 years ago when her daughter was diagnosed with breast cancer and was found to harbor a BRCA1 mutation. She had been undergoing surveillance mammography. Her routine screening mammogram from 12/06/2018 was BI-RADS 0. She had additional mammographic views and ultrasound of the left breast on 12/27/2018. Mammogram findings included a round nodule in the medial left breast at the middle depth measuring 5 mm. Ultrasound showed a slightly lobulated nodule at the 10 o'clock position 1 cm from the nipple measuring 6 x 4 mm. The appearance was benign, and she was recommended to continue yearly follow-up. In September 2019 she had presented to [facility] with a lump in the superior aspect of the left breast. Bilateral diagnostic mammogram and left breast ultrasound at that time was BI-RADS 4, suspicious. Mammogram findings included a high density mass in the superior posterior left breast measuring 14 mm with several adjacent benign-appearing lymph nodes. Also noted were adjacent superimposed lymph nodes in the axilla, at least 1 of which was felt to be possibly abnormal. Ultrasound showed an ill-defined hypoechoic mass at 12 o'clock position 6 cm from the nipple. It measured 2.4 x 1.1 x 2.3 cm. There were normal appearing lymph nodes in the axilla. Ultrasound directed core needle biopsy of the left breast mass on 10/18/2019 showed mucinous carcinoma (colloid carcinoma). The breast prognostic profile showed ER positive at 100% and OR positive at 98%. The tumor was negative for overexpression of HER-2/lazarus, 0+ by IHC and amplification ratio by FISH of 0.8 with 1.8 HER-2 copies/cell. The Ki-67 was favorable at 5%. She was referred to Dr. Corrales. On 11/07/2019 she underwent left breast lumpectomy with axillary sentinel lymph node biopsy. Pathology showed grade 1 mucinous carcinoma (colloid carcinoma) measuring 2.5 cm in greatest dimension. There was mucin identified at the inferior margin, but the margins were free of mucinous carcinoma. There was no involvement in 6 lymph nodes. Pathologic staging was pT2, pN0. I had seen her initially on 12/03/2019. She then had further evaluation with Oncotype DX. It showed a recurrence score of 9 corresponding to a 3% risk of distant recurrence at 9 years with adjuvant hormonal therapy. The predicted benefit with chemotherapy was less than 1%. As such, adjuvant chemotherapy was not recommended. She was seen by Dr. Davies for radiation oncology consultation on 01/08/2020. She then proceeded with radiation to the left breast, completed on 02/04/2020 to a total dose 4000 cGy, administered in 15 fractions. She tolerated the radiation well. She began adjuvant hormonal therapy with anastrozole 1 mg daily in February 2020. Her other medical illnesses include COPD, degenerative disease of the spine, osteopenia, and vitamin D deficiency. She has been followed by Dr. Tiwari for a solitary pulmonary nodule. Her prior surgeries include hysterectomy/bilateral salpingo-oophorectomy in 1994. She had previous lumbar laminectomy for ruptured disc. She has a history of smoking 1/2 pack of cigarettes daily for 20 years, but she quit in 2008. INTERIM HISTORY: On her surveillance chest CT from 06/30/2020 the previously described right upper lobe and left lower lobe subpleural opacities were essentially resolved. There was a small amount of residual pleural thickening in the right upper lobe. There were no new suspicious pulmonary parenchymal opacities noted. Micronodular infiltrates in the anterior segment left upper lobe felt to be infectious or inflammatory appeared unchanged. There is no mediastinal or hilar lymphadenopathy. There were moderate chronic emphysematous changes with parenchymal fibrosis. She is seen for a follow-up visit. She has been feeling pretty good generally. Her energy has been okay. She has normal activity. ECOG score is 0. Her appetite has been good. She has not had fever. She has occasional hot flashes/sweating. She does not complain of shortness of breath, cough, or chest pain. She has no GI or complaints. She has a little soreness, mainly in the upper back between the shoulder blades. She also occasionally has pain in her legs and knees. She has occasional headache. She does not complain of dizziness. She has no numbness/paresthesia or other focal neurologic symptoms. Medications: Adult Aspirin EC Low Strength 1 Tablet (of 81 mg) Tablet, enteric coated Oral daily, Anastrozole 1 Tablet (of 1 mg) Oral daily, Apple Cider Vinegar 1 Capsule Oral daily, Tumersaid 1 Tablet Oral daily Allergies: Iodinated Contrast Dye Vital Signs: Performed on Sep 28, 2020 14:37 Height - 61.00 in Weight - 126.8 lbs (LOW) BSA - 1.56 sq.m BMI - 23.96 Temperature - 98.0 F (LOW) Pulse - 90 /min Respiration - 16 /min BP - 148/81 mm(hg) (HIGH) O2 Sat - 96 % Pain - 0 Fatigue - 0 Physical Examination: Constitutional - She looks good generally, Eyes - Sclerae nonicteric. Conjunctivae clear, ENMT - No lesions noted in the oral cavity, Hematologic/Lymphatic - No cervical or clavicular adenopathy, Respiratory - Lungs are clear with good air movement bilaterally, Cardiovascular - Heart rhythm is regular. There is no murmur, gallop, or rub noted, Breasts - The right breast shows no mass. The left breast remains mildly indurated and warm to touch. There is no mass palpable. There is no axillary adenopathy, Abdomen - Soft. Liver and spleen are not enlarged. There is no abdominal mass or ascites noted and there is no inguinal adenopathy, Extremities - No edema, Neurologic - No focal neurologic deficits noted. Lab/Imaging: Test performed on Sep 28, 2020 13:15 WBC 7.9 10 3/uL RBC 3.93 10 6/uL HGB 12.5 g/dL HCT 39.0 % MCV 99.2 fl MCH 31.8 pg MCHC 32.1 g/dL RDW 12.6 % Platelet Count 283 10 3/cmm MPV 10.2 fL Neutrophils 4.66 10 3/uL Lymphocytes 2.3 10 3/uL Monocytes 0.7 10 3/uL Eosinophils 0.2 10 3/uL Basophils 0.1 10 3/uL Neutrophil % 58.9 % Lymphocyte % 28.8 % Monocyte % 8.8 % Eosinophil % 2.5 % Basophils % 0.6 % NRBC % 0 % Problem List: 1. Grade 1 mucinous carcinoma (colloid carcinoma of the left breast, stage IA (T2, pN0, M0), ER/OR positive and HER-2/lazarus negative. Her Oncotype DX was low risk, recurrence score 9, and adjuvant chemotherapy was not recommended. 2. She had previously been determined to harbor a BRCA1 mutation. 3. COPD. 4. Degenerative disease of the spine. 5. Osteopenia. 6. Vitamin D deficiency. Problems Addressed with this Encounter and Plan: 1. Patient with grade 1 mucinous carcinoma (colloid carcinoma of the left breast, stage IA (T2, pN0, M0), ER/OR positive and HER-2/lazarus negative. She underwent ultrasound-directed core needle biopsy of the left breast on 10/18/2019 followed by left breast lumpectomy and axillary sentinel lymph node biopsy on 11/07/2019. She underwent evacuation of left breast hematoma on 11/28/2019. Her Oncotype DX was low risk, recurrence score 9, and adjuvant chemotherapy was not recommended. She completed radiation to the left breast on 02/04/2020, total dose of 4000 cGy administered in 15 fractions. In February 2020 she began adjuvant hormonal therapy with anastrozole 1 mg daily. She has since then had some mild musculoskeletal pain, mainly in the upper back and lower extremities. Some component of this is likely to be treatment related, but thus far it is tolerable. She will continue anastrozole 1 mg daily. She will be scheduled for a follow-up visit in 6 months. 2. Osteopenia/vitamin D deficiency. Her DEXA scan in February 2020 showed T score -2.3 in the left hip and -2.1 in the right hip. With those findings and with the risks associated with aromatase inhibitor therapy, she began treatment with Prolia and she continued vitamin D supplementation. She is due now for her second dose of Prolia, 60 mg by subcutaneous injection. Signed By: Sidney Luna M.D. <<Signature on File>>
== END 2020-09-28 13:02 | disposition home or self-care (01) ==
LOC: ONCMED 13:04
PROVIDERS: PCP Nurse Practitioner Family; Visit Provider Internal Medicine Medical Oncology
DX: C50.812 Malignant neoplasm of overlapping sites of left female breast (principal); Z17.0 Estrogen receptor positive status [ER+]; M81.0 Age-related osteoporosis without current pathological fracture; J44.9 Chronic obstructive pulmonary disease, unspecified; M47.9 Spondylosis, unspecified; M85.80 Other specified disorders of bone density and structure, unspecified site; E55.9 Vitamin D deficiency, unspecified; Z79.811 Long term (current) use of aromatase inhibitors; Z79.899 Other long term (current) drug therapy; Z92.21 Personal history of antineoplastic chemotherapy; Z92.3 Personal history of irradiation
CPT/HCPCS: 80053; 82306; 85025; 96372; 99214; J0897

== ENCOUNTER 2020-10-02 12:45 | Outpatient (CLI) | payer MEDICARE, OTHER, SELFPAY ==
--- NOTE | 2020-10-02 12:52 | MR_ITS ---
WS: [id number] MRI BRAIN WITH HIGH-RESOLUTION IMAGING THROUGH THE INTERNAL AUDITORY CANALS WITHOUT CONTRAST HISTORY: SENSORINEURAL HEARING LOSS, BILATERAL COMPARISON: None available. TECHNIQUE: Multiplanar, multisequence imaging is performed through the brain. Additional 3 mm imaging performed in multiple planes through the internal auditory canal. Patient declined contrast evaluation. No acute intracranial hemorrhage, midline shift, edema or mass effect. Diffusion-weighted images are normal. There are a few scattered T2 and FLAIR signal hyperintensities from chronic ischemic disease most likely. No prior infarct. Ventricles and extra-axial spaces are normal. No inferior displacement of cerebellar tonsils. Clivus and pituitary gland are normal. Internal and external auditory canals: No signal abnormalities noted. Cranial nerves VII and VIII complexes: No signal abnormalities noted. Cerebellopontine angles: Normal. Paranasal sinuses: Normal. Mastoid air cells: Normal. Calvarium and scalp: Normal. MR/MR iac's wo con [id number] IMPRESSION: 1. Study performed without IV contrast at the patient's request. 2. No signal abnormalities or mass effect along the internal or external audit ory canals. 3. Mild chronic microvascular ischemic disease in the white matter.
== END 2020-10-02 12:46 | disposition home or self-care (01) ==
PROVIDERS: PCP Nurse Practitioner Family; Visit Provider Specialist
DX: H90.3 Sensorineural hearing loss, bilateral (principal); I67.82 Cerebral ischemia
CPT/HCPCS: 70551

== ENCOUNTER 2020-10-05 11:19 | Outpatient (CLI) | payer MEDICARE, OTHER, SELFPAY ==
--- NOTE | 2020-10-05 11:25 | MM_ITS ---
WS: [id number] BILATERAL DIAGNOSTIC DIGITAL MAMMOGRAM WITH CAD HISTORY: HX OF BREAST CA COMPARISON: None available. Bilateral CC, ML and MLO views submitted. Computer aided detection analyzed. Breast composition: There are scattered areas of fibroglandular density. No suspicious masses, microc alcifications or architectural distortion. Trabecular thickening and skin thickening throughout the L EFT breast. Postsurgical changes in the upper outer quadrant. No new mass or calcification. MM/[place] [id number] IMPRESSION: BI-RADS: 2-Benign FOLLOW UP: 1 Year Follow-up
== END 2020-10-05 11:20 | disposition home or self-care (01) ==
PROVIDERS: PCP Nurse Practitioner Family; Visit Provider Internal Medicine Medical Oncology
DX: Z85.3 Personal history of malignant neoplasm of breast (principal)
CPT/HCPCS: 77066

== ENCOUNTER 2021-04-05 12:17 | Outpatient (CLI) | payer MEDICARE, OTHER, SELFPAY ==
[2021-04-05 13:15] LABS: Alanine Aminotransferase 16 U/L (0-33); Alkaline Phosphatase 66 IU/L (35-105); Anion Gap 17.3 (5-19); Aspartate Amino Transferase 18 U/L (0-32); Blood Urea Nitrogen 20 mg/dL (8-23); Calcium 10.8 mg/dL (8.5-10.5); Carbon Dioxide 27 mmol/L (22-29); Chloride 100 mmol/L (98-107); Globulin 2.8 g/dL (1.3-4.6); Glomerular Filtration Rate 71.1 mL/min (90-130); Glucose 83 mg/dL (65-115); Osmolality Calculated 292 mOsm/kg (285-295); Potassium 4.3 mmol/L (3.5-5.1); Sodium 140 mmol/L (136-145); Total Bilirubin 0.4 mg/dL (0.15-1.2); Total Protein 7.8 g/dL (6.6-8.7)
[2021-04-05 13:36] LABS: Basophils % 0.5 %; Eosinophils # 0.1 10^3/uL (0.0-0.8); Eosinophils % 0.6 %; Hematocrit 36.9 % (37.0-47.0); Hemoglobin 12.2 g/dL (11.5-15.3); Lymphocytes % 24.3 %; Mean Corpuscular HGB Conc 33.1 g/dL (30.0-36.0); Mean Corpuscular Hemoglobin 32.6 pg (28.0-34.0); Mean Corpuscular Volume 98.7 fl (81-99); Mean Platelet Volume 9.6 fL (7.4-10.4); Monocytes # 0.5 10^3/uL (0.2-0.9); Monocytes % 6.5 %; Neutrophils # 5.68 10^3/uL (1.8-7.7); Neutrophils % 67.9 %; Nucleated Red Blood Cells % 0 %; Platelet Count 287 10^3/cmm (130-400); Red Blood Count 3.74 10^6/uL (4.1-5.3); Red Cell Distribution Width 13.1 % (12.1-15.1); White Blood Count 8.4 10^3/uL (4.0-10.0)
[2021-04-05 14:29] LABS: 25 Hydroxy Vitamin D > 100 ng/mL (30-100)
--- NOTE | 2021-04-09 14:23 | ONC FU_ITS ---
Dr. Luna Patient Follow-Up Note Patient: Vania Vallejo Unit #: [id number]: 1950 Dicatated By: Sidney Luna M.D.Date of Visit:Apr 05, 2021 Onc Med Follow-up/Prog Note Chief Complaint: Breast cancer. 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 This patient is known to be BRCA1 positive, discovered approximately 10 years ago when her daughter was diagnosed with breast cancer and was found to harbor a BRCA1 mutation. She had been undergoing surveillance mammography. Her routine screening mammogram from 12/06/2018 was BI-RADS 0. She had additional mammographic views and ultrasound of the left breast on 12/27/2018. Mammogram findings included a round nodule in the medial left breast at the middle depth measuring 5 mm. Ultrasound showed a slightly lobulated nodule at the 10 o'clock position 1 cm from the nipple measuring 6 x 4 mm. The appearance was benign, and she was recommended to continue yearly follow-up. [facility] September [facility] a lump in the superior aspect of the left breast. Bilateral diagnostic mammogram and left breast ultrasound at that time was BI-RADS 4, suspicious. Mammogram findings included a high density mass in the superior posterior left breast measuring 14 mm with several adjacent benign-appearing lymph nodes. Also noted were adjacent superimposed lymph nodes in the axilla, at least 1 of which was felt to be possibly abnormal. Ultrasound showed an ill-defined hypoechoic mass at 12 o'clock position 6 cm from the nipple. It measured 2.4 x 1.1 x 2.3 cm. There were normal appearing lymph nodes in the axilla. Ultrasound directed core needle biopsy of the left breast mass on 10/18/2019 showed mucinous carcinoma (colloid carcinoma). The breast prognostic profile showed ER positive at 100% and VT positive at 98%. The tumor was negative for overexpression of HER-2/lazarus, 0+ by IHC and amplification ratio by FISH of 0.8 with 1.8 HER-2 copies/cell. The Ki-67 was favorable at 5%. She was referred to Dr. Corrales. On 11/07/2019 she underwent left breast lumpectomy with axillary sentinel lymph node biopsy. Pathology showed grade 1 mucinous carcinoma (colloid carcinoma) measuring 2.5 cm in greatest dimension. There was mucin identified at the inferior margin, but the margins were free of mucinous carcinoma. There was no involvement in 6 lymph nodes. Pathologic staging was pT2, pN0. I had seen her initially on 12/03/2019. She then had further evaluation with Oncotype DX. It showed a recurrence score of 9 corresponding to a 3% risk of distant recurrence at 9 years with adjuvant hormonal therapy. The predicted benefit with chemotherapy was less than 1%. As such, adjuvant chemotherapy was not recommended. She was seen by Dr. Davies for radiation oncology consultation on 01/08/2020. She then proceeded with radiation to the left breast, completed on 02/04/2020 to a total dose 4000 cGy, administered in 15 fractions. She tolerated the radiation well. She began adjuvant hormonal therapy with anastrozole 1 mg daily in February 2020. Her other medical illnesses include COPD, degenerative disease of the spine, osteopenia, and vitamin D deficiency. She has been followed by Dr. Tiwari for a solitary pulmonary nodule. Her prior surgeries include hysterectomy/bilateral salpingo-oophorectomy in 1994. She had previous lumbar laminectomy for ruptured disc. She has a history of smoking 1/2 pack of cigarettes daily for 20 years, but she quit in 2008. INTERIM HISTORY: On her surveillance chest CT from 06/30/2020 the previously described right upper lobe and left lower lobe subpleural opacities were essentially resolved. There was a small amount of residual pleural thickening in the right upper lobe. There were no new suspicious pulmonary parenchymal opacities noted. Micronodular infiltrates in the anterior segment left upper lobe felt to be infectious or inflammatory appeared unchanged. There was no mediastinal or hilar lymphadenopathy. There were moderate chronic emphysematous changes with parenchymal fibrosis. As of her follow-up visit in September 2020 she was doing well clinically. She continued adjuvant hormonal therapy with anastrozole 1 mg daily. She also continued treatment with Prolia for bone health. She is seen for a follow-up visit. She has been feeling pretty good generally. However, following her last visit and Prolia injection she lost to teeth on the left side and she also complained that she lost hearing in her left ear. She says her jaw stays sore. Her energy is still good most of the time, and she has normal activity. ECOG score is 0. Her appetite is good. She has not had fever. She occasionally has hot flashes and a little night sweating. She has not had sore mouth or throat. She does not complain of cough, and she has not been having shortness of breath or chest pain. She has no GI or complaints. She occasionally has a little bit of pain in her hips. She does not complain of headache or dizziness, and she has no focal neurologic symptoms. Medications: Adult Aspirin EC Low Strength 1 Tablet (of 81 mg) Tablet, enteric coated Oral daily, Anastrozole 1 Tablet (of 1 mg) Oral daily, Apple Cider Vinegar 1 Capsule Oral daily, Tumersaid 1 Tablet Oral daily Allergies: Iodinated Contrast Dye Vital Signs: Performed on Apr 05, 2021 15:13 Height - 61.00 in Weight - 118.8 lbs (LOW) BSA - 1.51 sq.m BMI - 22.45 Temperature - 98.1 F (LOW) Pulse - 86 /min Respiration - 16 /min BP - 136/82 mm(hg) O2 Sat - 95 % (LOW) Pain - 0 Fatigue - 2 Physical Examination: Constitutional - She looks good generally, Eyes - Sclerae nonicteric. Conjunctivae clear, ENMT - No lesions noted in the oral cavity, Hematologic/Lymphatic - No cervical, clavicular, or axillary adenopathy, Respiratory - Lungs are clear with good air movement bilaterally, Cardiovascular - Heart rhythm is regular. There is no murmur, gallop, or rub noted, Abdomen - Soft. Liver and spleen are not enlarged. There is no abdominal mass or ascites noted and there is no inguinal adenopathy, Extremities - No edema, Neurologic - No focal neurologic deficits noted. Lab/Imaging: Test performed on Apr 05, 2021 13:25 WBC 8.4 10 3/uL RBC 3.74 10 6/uL HGB 12.2 g/dL HCT 36.9 % MCV 98.7 fl MCH 32.6 pg MCHC 33.1 g/dL RDW 13.1 % Platelet Count 287 10 3/cmm MPV 9.6 fL Neutrophils 5.68 10 3/uL Lymphocytes 2.0 10 3/uL Monocytes 0.5 10 3/uL Eosinophils 0.1 10 3/uL Basophils 0.0 10 3/uL Neutrophil % 67.9 % Lymphocyte % 24.3 % Monocyte % 6.5 % Eosinophil % 0.6 % Basophils % 0.5 % NRBC % 0 % Test performed on Apr 05, 2021 12:40 Sodium 140 mmol/L Vitamin D (25-Hydroxy), Total > 100 ng/mL Potassium 4.3 mmol/L Chloride 100 mmol/L CO2 27 mmol/L Anion Gap 17.3 BUN 20 mg/dL Creatinine 0.8 mg/dL Cr Clearance (Est) 60.2600 mL/min eGFR 71.1 mL/min Glucose 83 mg/dL Osmolality - Calculated 292 mOsm/kg Calcium 10.8 mg/dL Protein, Total 7.8 g/dL Albumin 5.0 g/dL Globulin 2.8 g/dL Bilirubin, Total 0.4 mg/dL ALT (SGPT) 16 U/L AST (SGOT) 18 U/L Alkaline Phosphatase 66 IU/L Manual Diff No THOJA3 IN ONC NOTIFIED OF [facility] Problem List: 1. Grade 1 mucinous carcinoma (colloid carcinoma of the left breast, stage IA (T2, pN0, M0), ER/VT positive and HER-2/lazarus negative. Her Oncotype DX was low risk, recurrence score 9, and adjuvant chemotherapy was not recommended. 2. She had previously been determined to harbor a BRCA1 mutation. 3. COPD. 4. Degenerative disease of the spine. 5. Osteopenia. 6. Vitamin D deficiency. Problems Addressed with this Encounter and Plan: 1. Patient with grade 1 mucinous carcinoma (colloid carcinoma of the left breast, stage IA (T2, pN0, M0), ER/VT positive and HER-2/lazarus negative. She underwent ultrasound-directed core needle biopsy of the left breast on 10/18/2019 followed by left breast lumpectomy and axillary sentinel lymph node biopsy on 11/07/2019. She underwent evacuation of left breast hematoma on 11/28/2019. Her Oncotype DX was low risk, recurrence score 9, and adjuvant chemotherapy was not recommended. She completed radiation to the left breast on 02/04/2020, total dose of 4000 cGy administered in 15 fractions. In February 2020 she began adjuvant hormonal therapy with anastrozole 1 mg daily. During follow-up she has had some mild musculoskeletal pain. Thus far he remains tolerable. Overall, she appears to be doing well clinically. She will continue anastrozole 1 mg daily. She will be scheduled for a follow-up visit in 6 months. 2. Osteopenia/vitamin D deficiency. Her DEXA scan in February 2020 showed T score -2.3 in the left hip and -2.1 in the right hip. With those findings and with the risks associated with aromatase inhibitor therapy, she began treatment with Prolia and she continued vitamin D supplementation. Subsequent to her Prolia injection in September 2020, she lost 2 teeth on the left side and she complains that her jaw has remained stiff and sore. She reports hearing loss in the left ear. I am uncertain to what extent that may be related, but with her jaw symptoms she will not be given any further Prolia. She also is advised to reduce her vitamin D supplement, as her level now is greater than 100 ng/mL. Signed By: Sidney Luna M.D. <<Signature on File>>
== END 2021-04-05 12:18 | disposition home or self-care (01) ==
PROVIDERS: PCP Nurse Practitioner Family; Visit Provider Internal Medicine Medical Oncology
DX: C50.912 Malignant neoplasm of unspecified site of left female breast (principal); E55.9 Vitamin D deficiency, unspecified; J44.9 Chronic obstructive pulmonary disease, unspecified; M47.9 Spondylosis, unspecified; M85.80 Other specified disorders of bone density and structure, unspecified site; Z79.899 Other long term (current) drug therapy
CPT/HCPCS: 36415; 80053; 82306; 85025; 99214

== ENCOUNTER 2021-05-14 10:20 | Outpatient (CLI) | payer MEDICARE, OTHER, SELFPAY ==
--- NOTE | 2021-05-14 11:21 | XR_ITS ---
WS: [email or web address] XR hip RT 2-3V wo/w pel* [id number] REASON FOR EXAM: BREAST CANCER, HIP PAIN FINDINGS: No fracture or focal bone lesion. Mild to moderate narrowing of the hip joint space. Moderate subchondral sclerosis in the acetabulum. Small marginal osteophytes of the acetabulum and femoral head. No soft tissue abnormality. XR/XR hip RT 2-3V wo/w pel* [id number] IMPRESSION: Osteoarthritis of the right hip. No focal bone lesion.
== END 2021-05-14 10:21 | disposition home or self-care (01) ==
LOC: RAD 10:24
PROVIDERS: PCP Nurse Practitioner Family; Visit Provider Nurse Practitioner Family
DX: C50.212 Malignant neoplasm of upper-inner quadrant of left female breast (principal); M16.11 Unilateral primary osteoarthritis, right hip
CPT/HCPCS: 73502

== ENCOUNTER → 2021-05-27 13:28 | Outpatient (BNVA) | payer MEDICARE, OTHER, SELFPAY | PROVIDERS: PCP Nurse Practitioner Family; Referring Provider Nurse Practitioner Family; Visit Provider Anesthesiology Pain Medicine | DX: M25.551 Pain in right hip (principal); M54.16 Radiculopathy, lumbar region; M43.26 Fusion of spine, lumbar region; M19.90 Unspecified osteoarthritis, unspecified site; Z87.891 Personal history of nicotine dependence | CPT/HCPCS: 72110; 99204 ==

== ENCOUNTER → 2021-06-02 13:29 | Outpatient (BNVA) | payer MEDICARE, OTHER, SELFPAY | PROVIDERS: PCP Nurse Practitioner Family; Visit Provider Anesthesiology Pain Medicine | DX: M16.11 Unilateral primary osteoarthritis, right hip (principal); Z87.891 Personal history of nicotine dependence | CPT/HCPCS: 20610; 77002; J1030; J3490 ==

== ENCOUNTER → 2021-06-16 08:53 | Outpatient (BNVA) | payer MEDICARE, OTHER, SELFPAY | PROVIDERS: PCP Nurse Practitioner Family; Visit Provider Anesthesiology Pain Medicine | DX: M16.11 Unilateral primary osteoarthritis, right hip (principal); M43.26 Fusion of spine, lumbar region; Z87.891 Personal history of nicotine dependence | CPT/HCPCS: 99213 ==

== ENCOUNTER 2021-10-06 10:54 | Outpatient (CLI) | payer MEDICARE, OTHER, SELFPAY ==
--- NOTE | 2021-10-06 10:59 | MM_ITS ---
WS: [email or web address] VIEWS: MLO, CC, and ML views both breasts. 3D digital tomosynthesis is also included in this exam. Comparison made with prior exam of 10/10/2019 and 09/08/2020.. Findings: There was no sign of mass, architectural distortion or suspicious calcification in either breast. Chr onic skin thickening of the left breast most likely secondary to previous radiation therapy. .Scatter ed fibroglandular densities are noted and are stable in appearance MM/[place] [id number] Impression: BI-RADS: 2-Benign FOLLOW-UP: 1 Year Follow-up This mammogram was also analyzed by the Computer Aided Detection System R2 Imag e Blurb Writer.
== END 2021-10-06 10:55 | disposition home or self-care (01) ==
LOC: RAD 10:58
PROVIDERS: PCP Nurse Practitioner Family; Visit Provider Internal Medicine Medical Oncology
DX: C50.212 Malignant neoplasm of upper-inner quadrant of left female breast (principal)
CPT/HCPCS: 77062; G0279

== ENCOUNTER 2021-11-19 10:47 | Oncology outpatient (recurring) (ONCR) | payer MEDICARE, OTHER, SELFPAY | END 2021-12-06 23:59 | disposition home or self-care (01) | LOC: ONCMED 10:47 | PROVIDERS: PCP Nurse Practitioner Family; Visit Provider Internal Medicine Medical Oncology | DX: C50.212 Malignant neoplasm of upper-inner quadrant of left female breast (principal); M85.80 Other specified disorders of bone density and structure, unspecified site; E55.9 Vitamin D deficiency, unspecified; Z79.891 Long term (current) use of opiate analgesic; Z17.0 Estrogen receptor positive status [ER+]; Z92.3 Personal history of irradiation; Z79.811 Long term (current) use of aromatase inhibitors; Z79.899 Other long term (current) drug therapy | CPT/HCPCS: 99214 ==

== ENCOUNTER → 2021-12-22 10:52 | Outpatient (BNVA) | payer MEDICARE, OTHER, SELFPAY | PROVIDERS: PCP Nurse Practitioner Family; Visit Provider Anesthesiology Pain Medicine | DX: M16.11 Unilateral primary osteoarthritis, right hip (principal); M43.26 Fusion of spine, lumbar region; C50.212 Malignant neoplasm of upper-inner quadrant of left female breast; M19.90 Unspecified osteoarthritis, unspecified site; Z87.891 Personal history of nicotine dependence | CPT/HCPCS: 99213 ==

== ENCOUNTER 2022-06-06 12:45 | Oncology outpatient (recurring) (ONCR) | payer MEDICARE, OTHER, SELFPAY | END 2022-07-06 23:59 | disposition home or self-care (01) | PROVIDERS: PCP Nurse Practitioner Family; Visit Provider Internal Medicine Medical Oncology | DX: C50.212 Malignant neoplasm of upper-inner quadrant of left female breast (principal); Z17.0 Estrogen receptor positive status [ER+]; R53.83 Other fatigue; M54.50 Low back pain, unspecified; M85.89 Other specified disorders of bone density and structure, multiple sites; E55.9 Vitamin D deficiency, unspecified; Z79.811 Long term (current) use of aromatase inhibitors; Z79.899 Other long term (current) drug therapy; Z92.3 Personal history of irradiation | CPT/HCPCS: 99214 ==

== ENCOUNTER → 2022-06-14 10:29 | Outpatient (BNVA) | payer MEDICARE, OTHER, SELFPAY | PROVIDERS: PCP Nurse Practitioner Family; Visit Provider Internal Medicine Cardiovascular Disease | DX: R07.89 Other chest pain (principal); Z85.3 Personal history of malignant neoplasm of breast; Z87.891 Personal history of nicotine dependence | CPT/HCPCS: 99204 ==

== ENCOUNTER 2022-06-28 10:43 | Outpatient (CLI) | payer MEDICARE, OTHER, SELFPAY ==
--- NOTE | 2022-06-28 11:00 | USCV_ITS ---
Vania Vallejo Age: 71 Gender: F : 1950 Exam Date: 06/28/2022 10:59 Ordering Phys: Leilani Tapia APRN Technologist: CT Exam Location: [facility] – [place] Indication: chest discomfort BP: 114 / 80 HR: 76 Rhythm: Sinus Technical Quality: Adequate MEASUREMENTS (Male / Female) Normal Values 2D ECHO LV Diastolic Diameter PLAX 4.3 cm 4.2 - 5.9 / 3.9 - 5.3 cm LV Systolic Diameter PLAX 2.9 cm IVS Diastolic Thickness 0.7 cm 0.6 - 1.0 / 0.6 - 0.9 cm IVS Systolic Thickness 1.3 cm LVPW Diastolic Thickness 0.9 cm 0.6 - 1.0 / 0.6 - 0.9 cm LVPW Systolic Thickness 1.0 cm LVOT Diameter 2.0 cm LV Ejection Fraction 2D Teich 63.0 % LV Ejection Fraction MOD 2C 67.5 % LV Ejection Fraction 2C AL 67.4 % LA Diameter 2.4 cm Aorta at Sinotubular Diameter 2.0 cm IVC Diameter 0.8 cm M-MODE Aortic Annulus Diameter 3.3 cm LA Ao Ratio MM 0.8 MV E Point Septal Separation 0.3 cm DOPPLER Right Atrial Pressure 3.0 mmHg FINDINGS Left Ventricle Normal left ventricular size, systolic function and wall thickness, with no regional wall motion abnormalities. Left ventricular ejection fraction is estimated at 60 %. Right Ventricle Normal right ventricular size and systolic function. Right Atrium Normal right atrial size. Left Atrium Normal left atrial size. Mitral Valve Structurally normal mitral valve. Aortic Valve Structurally normal trileaflet aortic valve. Tricuspid Valve Structurally normal tricuspid valve. Pulmonic Valve Pulmonic valve not well visualized. Pericardium No pericardial effusion. Aorta Normal size aortic root and proximal ascending aorta. IVC Normal IVC dimension with >50% respiratory change of the inferior vena cava. CONCLUSIONS 1. Normal left ventricular size, systolic function and wall thickness, with no regional wall motion abnormalities. Left ventricular ejection fraction is estimated at 60 %. 2. No prior similar studies to compare. Judy Vinson MD (Electronically Signed) Final Date: 29 Jun 2022 12:10 S
--- NOTE | 2022-06-28 13:00 | XR_ITS ---
WS: [email or web address] SCREENING DEXA SCAN Zinitix CLINICAL INFORMATION: aromatase inhibitor COMPARISON: March 05, 2020 FINDINGS: The L1-L4 bone mineral density measures . This corresponds to a T score score of and Z score of . Left femoral neck bone mineral density measures 0.671 g/cm2. This corresponds to a T score of -2.7 an d Z score of -0.9. Right femoral neck bone mineral density measures 0.731 g/cm2. This corresponds to a T score -2.2of an d Z score of -0.4. Mean femoral neck bone mineral density measures 0.701 g/cm2. This corresponds to a T score of -2.4 an d Z score of -0.6. XR/XR DEXA axial skeleton* [id number] IMPRESSION: Osteopenia LEFT forearm. Osteoporosis lower end of the range femoral necks. Patient's FRAX calculated 10 year probability for major osteoporotic fracture i s 17.0 % and osteoporotic hip fracture is 5.6%. LEFT forearm bone mineral density has decreased -3.2% since 2020 LEFT femoral neck bone mineral density decreased -3.8% since 2020
== END 2022-06-28 10:44 | disposition home or self-care (01) ==
LOC: RAD 10:45
PROVIDERS: PCP Nurse Practitioner Family; Visit Provider Nurse Practitioner Family
DX: Z13.820 Encounter for screening for osteoporosis (principal); M85.832 Other specified disorders of bone density and structure, left forearm; M81.0 Age-related osteoporosis without current pathological fracture; C50.212 Malignant neoplasm of upper-inner quadrant of left female breast; D50.8 Other iron deficiency anemias; Z78.0 Asymptomatic menopausal state; Z79.811 Long term (current) use of aromatase inhibitors
CPT/HCPCS: 77080; 93308

== ENCOUNTER 2022-07-07 12:30 | Outpatient (CLI) | payer MEDICARE, OTHER, SELFPAY ==
[2022-07-07 12:50] VITALS: BMI 22.4
--- NOTE | 2022-07-07 12:50 | ECG_ITS ---
[facility] Test Date: 2022-07-07 Pat Name: Vania Vallejo Department: Room: Gender: Female Nuclear Instructor: Faustina Zavaleta : 1950 Requested By: Carter Grissom Order Number: [id number] [place] MD: Wade Hurd M.D. Interpretive Statements NAME OF STUDY: DOBUTAMINE STRESS ECHOCARDIOGRAM INDICATION: [Chest Pain, ] Dobutamine infusion data: Baseline heart rate was 83 beats per minute. Baseline blood pressure was 157/95 millimeters of mercury. Target heart rate was 127 bpm. Dobutamine infusion was started. Patient reached a maximum heart rate of 149 bpm which was 118% of target heart rate. Maximum blood pressure was 167/85 millimeters of mercury. ELECTROCARDIOGRAM: BASELINE: Showed sinus rhythm, normal axis, no significant ST-T changes at the baseline noted. [] EXERCISE: At the peak exercise level, [] No significant ST-T changes suggestive of ischemia noted. [] RECOVERY: During the recovery period, heart rate dropped appropriately. No significant ST-T changes in the recovery suggestive of ischemia noted. [] CONCLUSION: 1. Heart rate response was appropriate 2. Blood pressure response was appropriate 3. Symptoms not suggestive of ischemia. 5. Electrocardiogram portion of the stress test was not suggestive of ischemia. Stress echocardiogram will be reported separately. Electronically Signed On 07-21-2022 10:02:41 CDT by Wade Hurd M.D. [email or web address]
--- NOTE | 2022-07-07 13:01 | USCV_ITS ---
Dobutamine Stress Echo Vania Vallejo Age: 71 Gender: F : 1950 Exam Date: 07/07/2022 13:13 Ordering Phys: Carter Grissom MD ([email or web address]) Technologist: Eddi Perez Exam Location: [facility] [place] Indication: Chest pain Rhythm: Sinus Patient History: Lumpectomy, Radiation Cardiac Medications: none Medications in past 24 hours: none Contrast: Total Dose (mL): Stress Results Protocol: Pharmacologic Peak Dose (???g/kg/min): Duration (min:sec): 18:37 Atropine:(mg) 0.2 Target HR: 128 Double Product: 89130 Resting HR: 84 Resting BP: 155 / 97 Peak HR: 149 Peak BP: 167 / 95 Max Predicted HR: 150 99 % Max Predicted HR Stress Summary: The patient's target heart rate was achieved. The hemodynamic response to stress was normal. The BP Response: Normal Reason for Termination: The patients target heart rate was achieved Cardiac Symptoms: None ECG Analysis Resting EKG: Normal sinus rhythm Stress EKG: Sinus tachyardia. No significant ST T wave changes Arrhythmia: None MEASUREMENTS (Male/Female) Normal Values FINDINGS Baseline echocardiogram shows normal LV systolic function with EF of 60 to 65%. No regional wall motion normalities are seen. Dobutamine infusion, patient reached 99% of maximum predicted heart rate. Appropriate heart rate and blood pressure response. On stress images, patient had a hyperdynamic left ventricle with no regional wall motion abnormalities. CONCLUSIONS Appropriate heart rate and blood pressure response to dobutamine infusion. No EKG changes suggesting ischemia Stress echocardiogram shows no evidence of ischemia. Wade Hurd MD (Electronically Signed) Final Date: 17 July 2022 11:17 S
[2022-07-07] MEDS: DOBUTtamine 200 MG in sodium chloride 0.9% 34 ML 7.82 MG IV (13:19)
[2022-07-07] MEDS: atropine 0.1 mg/mL Syr 10 mL 0.5 MG IVP (13:30)
[2022-07-07 13:42] VITALS: BP 135/93; PULSE 99
== END 2022-07-07 12:31 | disposition home or self-care (01) ==
LOC: CDL 12:30
PROVIDERS: PCP Nurse Practitioner Family; Visit Provider Internal Medicine Cardiovascular Disease
DX: R07.9 Chest pain, unspecified (principal)
CPT/HCPCS: 36415; 93017; 93350; 96375; J0461; J1250; J7050

== ENCOUNTER 2022-11-03 14:03 | Outpatient (CLI) | payer MEDICARE, OTHER, SELFPAY ==
--- NOTE | 2022-11-03 14:13 | MM_ITS ---
WS: [email or web address] BILATERAL 3D TOMOSYNTHESIS DIGITAL DIAGNOSTIC MAMMOGRAPHY WITH CAD CLINICAL INFORMATION: 1 year follow up breast ca HISTORY: Previous LEFT lumpectomy COMPARISON: 10/06/2021 TECHNIQUE: Bilateral CC, MLO, and ML views. FINDINGS: The breasts are composed of heterogeneous fibroglandular density, which can limit the detection of sm all underlying mass lesions. A few incidental punctate calcifications. Previous postoperative changes LEFT lumpectomy with parenchymal fibrosis. Treatment related changes LEFT breast with skin thickenin g similar to previous. Vascular calcifications. No suspicious focal mass, asymmetry, calcifications, or architectural distortion. No evidence of lindy gnancy. IMPRESSION: MM/[place] [id number] BI-RADS: 2-Benign FOLLOW UP: 1 Year Follow-up Recommend return to annual diagnostic mammography.
== END 2022-11-03 14:04 | disposition home or self-care (01) ==
PROVIDERS: PCP Nurse Practitioner Family; Visit Provider Internal Medicine Medical Oncology
DX: Z85.3 Personal history of malignant neoplasm of breast
CPT/HCPCS: 77062; G0279

== ENCOUNTER 2022-12-07 10:48 | Oncology outpatient (recurring) (ONCR) | payer MEDICARE, OTHER, SELFPAY ==
[2022-12-07 10:54] VITALS: BP 126/72; PULSE 77; RESP 16; TEMP 36.5; O2SAT 97
[2022-12-07 11:04] LABS: Basophils # 0.1 10^3/uL (0.0-0.1); Basophils % 0.7 %; Eosinophils # 0.1 10^3/uL (0.0-0.8); Eosinophils % 0.8 %; Lymphocytes # 2.2 10^3/uL (0.8-4.8); Lymphocytes % 29.8 %; Mean Corpuscular HGB Conc 32.6 g/dL (30-55); Mean Corpuscular Hemoglobin 31.9 pg (27-33); Mean Corpuscular Volume 97.7 fl (85-98); Mean Platelet Volume 9.3 fL (7.4-10.4); Monocytes # 0.5 10^3/uL (0.2-0.9); Monocytes % 7.1 %; Neutrophils # 4.55 10^3/uL (1.8-7.7); Neutrophils % 61.2 %; Nucleated Red Blood Cells % 0 %; Platelet Count 293 10^3/cmm (157-399); Red Blood Count 3.89 10^6/uL (3.85-5.65); White Blood Count 7.44 10^3/uL (3.29-11.43)
[2022-12-07 11:20] LABS: Alanine Aminotransferase 13 U/L (0-33); Albumin Level 4.5 g/dL (3.5-5.2); Alkaline Phosphatase 106 U/L (35-105); Anion Gap 12.2 (5-19); Aspartate Amino Transferase 14 U/L (0-32); Blood Urea Nitrogen 20 mg/dL (8-23); Carbon Dioxide 29 mmol/L (22-29); Chloride 101 mmol/L (98-107); Globulin 2.7 g/dL (1.3-4.6); Glucose 123 mg/dL (65-115); Osmolality Calculated 290 mOsm/kg (285-295); Potassium 4.2 mmol/L (3.5-5.1); Sodium 138 mmol/L (136-145); Total Bilirubin 0.3 mg/dL (0.15-1.2); Total Protein 7.2 g/dL (6.6-8.7)
[2022-12-07 13:55] LABS: 25 Hydroxy Vitamin D 83 ng/mL (30-100)
== END 2023-01-05 23:59 | disposition home or self-care (01) ==
PROVIDERS: Nurse Practitioner Family; PCP Nurse Practitioner Family; Visit Provider Internal Medicine Medical Oncology
DX: C50.212 Malignant neoplasm of upper-inner quadrant of left female breast (principal); Z17.0 Estrogen receptor positive status [ER+]; R53.83 Other fatigue; M54.50 Low back pain, unspecified; M85.89 Other specified disorders of bone density and structure, multiple sites; E55.9 Vitamin D deficiency, unspecified; Z79.811 Long term (current) use of aromatase inhibitors; Z79.899 Other long term (current) drug therapy; Z92.3 Personal history of irradiation; M85.80 Other specified disorders of bone density and structure, unspecified site; Z79.891 Long term (current) use of opiate analgesic
CPT/HCPCS: 36415; 80053; 82306; 85025; 99213

== ENCOUNTER 2023-06-07 10:43 | Oncology outpatient (recurring) (ONCR) | payer MEDICARE, OTHER, SELFPAY ==
[2023-06-07 11:08] LABS: Basophils # 0.1 10^3/uL (0.0-0.1); Basophils % 0.6 %; Eosinophils # 0.1 10^3/uL (0.0-0.8); Eosinophils % 0.7 %; Hematocrit 39.9 % (36-47); Lymphocytes # 2.7 10^3/uL (0.8-4.8); Lymphocytes % 31.2 %; Mean Corpuscular HGB Conc 32.6 g/dL (30-55); Mean Corpuscular Hemoglobin 31.7 pg (27-33); Mean Corpuscular Volume 97.3 fl (85-98); Mean Platelet Volume 9.4 fL (7.4-10.4); Monocytes # 0.7 10^3/uL (0.2-0.9); Monocytes % 8.2 %; Neutrophils # 5.06 10^3/uL (1.8-7.7); Neutrophils % 59.1 %; Nucleated Red Blood Cells % 0 %; Platelet Count 301 10^3/cmm (157-399); Red Cell Distribution Width 13.2 % (12.1-15.1); White Blood Count 8.56 10^3/uL (3.29-11.43)
[2023-06-07 11:27] LABS: Alanine Aminotransferase 12 U/L (0-33); Albumin Level 4.4 g/dL (3.5-5.2); Alkaline Phosphatase 111 U/L (35-105); Anion Gap 14.5 (5-19); Aspartate Amino Transferase 19 U/L (0-32); Blood Urea Nitrogen 16 mg/dL (8-23); Calcium 9.4 mg/dL (8.5-10.5); Carbon Dioxide 27 mmol/L (22-29); Chloride 104 mmol/L (98-107); Globulin 2.8 g/dL (1.3-4.6); Glucose 87 mg/dL (65-115); Osmolality Calculated 293 mOsm/kg (285-295); Potassium 4.5 mmol/L (3.5-5.1); Sodium 141 mmol/L (136-145); Total Bilirubin 0.3 mg/dL (0.15-1.2); Total Protein 7.2 g/dL (6.6-8.7)
[2023-06-07 11:41] LABS: 25 Hydroxy Vitamin D 90 ng/mL (30-100)
== END 2023-07-07 23:59 | disposition home or self-care (01) ==
PROVIDERS: Nurse Practitioner Family; PCP Nurse Practitioner Family; Visit Provider Internal Medicine Medical Oncology
DX: C50.212 Malignant neoplasm of upper-inner quadrant of left female breast (principal); Z17.0 Estrogen receptor positive status [ER+]; R53.83 Other fatigue; M85.89 Other specified disorders of bone density and structure, multiple sites; E55.9 Vitamin D deficiency, unspecified; Z79.811 Long term (current) use of aromatase inhibitors; Z79.899 Other long term (current) drug therapy; Z92.3 Personal history of irradiation; M85.80 Other specified disorders of bone density and structure, unspecified site; Z79.891 Long term (current) use of opiate analgesic; M81.0 Age-related osteoporosis without current pathological fracture
CPT/HCPCS: 36415; 80053; 82306; 85025; 99214

== ENCOUNTER 2023-11-08 10:54 | Oncology outpatient (recurring) (ONCR) | payer MEDICARE, OTHER, SELFPAY ==
--- NOTE | 2023-11-08 11:00 | MM_ITS ---
WS: [id number] DIAGNOSTIC BILATERAL DIGITAL BREAST TOMOSYNTHESIS MAMMOGRAPHY WITH CAD HISTORY: history of breast cancer COMPARISON: 11/03/2022, 10/06/2021, 10/10/2019 TECHNIQUE: Bilateral craniocaudad, mediolateral oblique, and mediolateral views are submitted with to mosynthesis and SM. Computer aided detection utilized. Breast composition: The breasts are heterogeneously dense, which may obscure small masses. Mild trabecular thickening and skin thickening LEFT breast. Surgical changes in the upper outer quadr ant towards the axillary tail. Benign calcifications are dystrophic in the LEFT breast. Stable nodule with central calcification in the posterior RIGHT breast. MM/MM diag BI tomosynthesis [id number] IMPRESSION: BI-RADS: 2 - Benign FOLLOW UP: 1 Year Follow-up
[2023-11-08 13:09] LABS: Basophils # 0.1 10^3/uL (0.0-0.1); Basophils % 0.5 %; Eosinophils # 0.1 10^3/uL (0.0-0.8); Eosinophils % 0.8 %; Hematocrit 39.4 % (36-47); Lymphocytes # 2.2 10^3/uL (0.8-4.8); Mean Corpuscular Hemoglobin 31.9 pg (27-33); Mean Corpuscular Volume 96.6 fl (85-98); Mean Platelet Volume 9.6 fL (7.4-10.4); Monocytes # 0.7 10^3/uL (0.2-0.9); Monocytes % 6.4 %; Neutrophils # 7.96 10^3/uL (1.8-7.7); Neutrophils % 72.1 %; Nucleated Red Blood Cells % 0 %; Platelet Count 308 10^3/cmm (157-399); Red Blood Count 4.08 10^6/uL (3.85-5.65); Red Cell Distribution Width 12.8 % (12.1-15.1); White Blood Count 11.04 10^3/uL (3.29-11.43)
[2023-11-08 13:28] LABS: Alanine Aminotransferase 14 U/L (0-33); Albumin Level 4.6 g/dL (3.5-5.2); Alkaline Phosphatase 114 U/L (35-105); Anion Gap 13.6 (5-19); Aspartate Amino Transferase 18 U/L (0-32); Blood Urea Nitrogen 22 mg/dL (8-23); Calcium 9.4 mg/dL (8.5-10.5); Carbon Dioxide 26 mmol/L (22-29); Chloride 102 mmol/L (98-107); Globulin 2.5 g/dL (1.3-4.6); Glucose 118 mg/dL (65-115); Osmolality Calculated 288 mOsm/kg (285-295); Potassium 4.6 mmol/L (3.5-5.1); Sodium 137 mmol/L (136-145); Total Bilirubin 0.4 mg/dL (0.15-1.2); Total Protein 7.1 g/dL (6.6-8.7)
== END 2023-12-07 23:59 | disposition home or self-care (01) ==
LOC: RAD 12:31 → ONCMED 12:42
PROVIDERS: PCP Nurse Practitioner Family; Visit Provider Nurse Practitioner Family
DX: C50.212 Malignant neoplasm of upper-inner quadrant of left female breast (principal); M81.0 Age-related osteoporosis without current pathological fracture; Z17.0 Estrogen receptor positive status [ER+]; Z79.899 Other long term (current) drug therapy; Z92.3 Personal history of irradiation; M85.832 Other specified disorders of bone density and structure, left forearm; Z79.891 Long term (current) use of opiate analgesic; R92.333 Mammographic heterogeneous density, bilateral breasts
CPT/HCPCS: 36415; 77062; 80053; 85025; 99214; G0279

== ENCOUNTER 2023-12-14 12:22 | Oncology outpatient (recurring) (ONCR) | payer MEDICARE, OTHER, SELFPAY | END 2024-01-06 23:59 | disposition home or self-care (01) | LOC: ONCMED 12:23 | PROVIDERS: PCP Nurse Practitioner Family; Visit Provider Nurse Practitioner Family | DX: C50.212 Malignant neoplasm of upper-inner quadrant of left female breast (principal); M81.0 Age-related osteoporosis without current pathological fracture; Z17.0 Estrogen receptor positive status [ER+]; Z79.899 Other long term (current) drug therapy; Z92.3 Personal history of irradiation; Z79.891 Long term (current) use of opiate analgesic | CPT/HCPCS: 99213 ==

== ENCOUNTER 2024-01-25 09:42 | Oncology outpatient (recurring) (ONCR) | payer MEDICARE, OTHER, SELFPAY | END 2024-02-06 23:59 | disposition home or self-care (01) | PROVIDERS: PCP Nurse Practitioner Family; Visit Provider Nurse Practitioner Family | DX: Z53.9 Procedure and treatment not carried out, unspecified reason (principal) | CPT/HCPCS: 99214 ==

== ENCOUNTER 2024-04-10 13:21 | Oncology outpatient (recurring) (ONCR) | payer MEDICARE, OTHER, SELFPAY ==
[2024-04-10 13:55] LABS: Basophils # 0.1 10^3/uL (0.0-0.1); Basophils % 0.6 %; Eosinophils # 0.1 10^3/uL (0.0-0.8); Eosinophils % 0.8 %; Hematocrit 38.6 % (36-47); Lymphocytes # 1.9 10^3/uL (0.8-4.8); Lymphocytes % 21.4 %; Mean Corpuscular HGB Conc 32.6 g/dL (30-55); Mean Corpuscular Hemoglobin 32.2 pg (27-33); Mean Corpuscular Volume 98.7 fl (85-98); Mean Platelet Volume 9.4 fL (7.4-10.4); Monocytes # 0.6 10^3/uL (0.2-0.9); Monocytes % 6.4 %; Neutrophils # 6.38 10^3/uL (1.8-7.7); Neutrophils % 70.2 %; Nucleated Red Blood Cells % 0 %; Platelet Count 297 10^3/cmm (157-399); Red Blood Count 3.91 10^6/uL (3.85-5.65); Red Cell Distribution Width 12.7 % (12.1-15.1); White Blood Count 9.07 10^3/uL (3.29-11.43)
[2024-04-10 14:12] LABS: Alanine Aminotransferase 11 U/L (0-33); Albumin Level 4.5 g/dL (3.5-5.2); Alkaline Phosphatase 99 U/L (35-105); Anion Gap 14.5 (5-19); Aspartate Amino Transferase 15 U/L (0-32); Blood Urea Nitrogen 19 mg/dL (8-23); Calcium 9.6 mg/dL (8.5-10.5); Carbon Dioxide 26 mmol/L (22-29); Chloride 103 mmol/L (98-107); Globulin 2.5 g/dL (1.3-4.6); Glucose 94 mg/dL (65-115); Osmolality Calculated 290 mOsm/kg (285-295); Potassium 4.5 mmol/L (3.5-5.1); Sodium 139 mmol/L (136-145); Total Bilirubin 0.2 mg/dL (0.15-1.2)
== END 2024-05-06 23:59 | disposition home or self-care (01) ==
PROVIDERS: PCP Nurse Practitioner Family; Visit Provider Internal Medicine
DX: Z08 Encounter for follow-up examination after completed treatment for malignant neoplasm (principal); Z85.3 Personal history of malignant neoplasm of breast; Z87.891 Personal history of nicotine dependence; M81.0 Age-related osteoporosis without current pathological fracture; Z92.23 Personal history of estrogen therapy; Z79.899 Other long term (current) drug therapy; Z92.3 Personal history of irradiation
CPT/HCPCS: 36415; 80053; 85025; 99213

== ENCOUNTER 2024-05-17 12:03 | Outpatient (CLI) | payer MEDICARE, OTHER, SELFPAY ==
--- NOTE | 2024-05-17 12:08 | XR_ITS ---
WS: [id number] Exam: XR hip BI 2V wo/w pel [id number] Date/Time of Exam: 05/17/2024 12:11 PM Reason For Exam: LUMBAR RADICULOPATHY There is mild degenerative change of both hips. The pattern is bilaterally symmetrical. No fracture. Normal bilateral soft tissues. Partially visualized hardware in the lower lumbar spine. XR/XR hip BI 2V wo/w pel [id number] IMPRESSION: 1. Mild bilateral DJD of both hips.
--- NOTE | 2024-05-17 12:08 | XR_ITS ---
WS: [email or web address] Exam: XR lumbar spine 2-3V* [id number] Date/Time of Exam: 05/17/2024 12:11 PM Reason For Exam: LUMBAR RADICULPATHY Comparison 05/27/2021. Stable appearing of posterior fusion at the L4-5 level with disc implant. The fusion is in good alignment. No sign of hardware complication. Marked degeneration of the L2-3 and L4-5 discs. No fractures. Mild levoscoliosis. Facet arthropathy at all levels. Osteopenia. XR/XR lumbar spine 2-3V* [id number] IMPRESSION: 1. Stable posterior fusion at L4-5. Degenerative changes and mild levoscoliosis .
== END 2024-05-17 12:04 | disposition home or self-care (01) ==
LOC: RAD 12:05
PROVIDERS: PCP Nurse Practitioner Family; Visit Provider Nurse Practitioner Family
DX: M54.16 Radiculopathy, lumbar region (principal); Z98.1 Arthrodesis status; M51.369 Other intervertebral disc degeneration, lumbar region without mention of lumbar back pain or lower extremity pain; M41.86 Other forms of scoliosis, lumbar region; M47.896 Other spondylosis, lumbar region; M85.88 Other specified disorders of bone density and structure, other site; M16.0 Bilateral primary osteoarthritis of hip
CPT/HCPCS: 72100; 73521